=== PATIENT | female | born 1995 | race Caucasian/White ===

== ENCOUNTER → 2019-10-20 13:37 | Outpatient (CLI) | payer BC, SELFPAY ==
[2019-10-03 16:04] VITALS: BMI 28.5
[2019-10-20 15:28] LABS: Absolute Lymphocyte Count 2.05 X10^3/uL (0.83-4.51); Absolute Neutrophil Count 2.5 X10^3/uL (2.0-7.7); Basophil# 0.04 X10^3/uL; Basophil% 0.8 % (0-1); Eosinophil# 0.08 X10^3/uL; Eosinophils% 1.6 % (0-5); Hematocrit 33.7 % (37-47); Hemoglobin 10.9 g/dL (12.0-15.0); Lymphocyte # 2.05 X10^3/ul (4.0); Lymphocyte % 40.5 % (19-41); Mean Corp Hgb Conc 32.3 g/dL (32-36); Mean Corpuscular Hgb 29.1 pg (27.0-32.0); Mean Corpuscular Volume 90.1 fL (81-99); Mean Platelet Vol. 9.8 fl (6.2-12.0); Monocyte# 0.36 X10^3/uL; Monocyte% 7.1 % (0-10); NRBC Flagged by Analyzer 0 % (0-5); Neutrophil # 2.52 X10^3/uL (2.7-7.7); Neutrophil % 49.8 % (47-70); Platelet Count 278 K/mm3 (150-450); RBC Distribution Width CV 12.6 % (11.6-14.6); RBC Distribution Width SD 41.3 fl (35.1-43.9); Red Blood Count 3.74 M/mm3 (4.2-5.4); White Blood Count 5.1 K/mm3 (4.4-11.0)
[2019-10-20 15:48] LABS: Ferritin 62 ng/mL (8-252); T4 Free Direct 1.35 ng/dL (0.76-1.46); Thyroid Stim Hormone (TSH) 1.36 uIU/mL (0.358-3.74)
[2019-10-20 15:55] LABS: Vitamin B12 390 pg/mL (211-911); Vitamin D,25 Hydroxy 84.5 ng/mL
== END ==
PROVIDERS: PCP Family Medicine; Referring Provider Internal Medicine Endocrinology, Diabetes & Metabolism; Visit Provider Internal Medicine Endocrinology, Diabetes & Metabolism
DX: M62.89 Other specified disorders of muscle (principal); E03.8 Other specified hypothyroidism; E06.3 Autoimmune thyroiditis; R20.2 Paresthesia of skin; N92.0 Excessive and frequent menstruation with regular cycle
CPT/HCPCS: 36415; 82306; 82607; 82728; 84439; 84443; 85025

== ENCOUNTER → 2020-04-18 10:08 | Outpatient (CLI) | payer BC, SELFPAY ==
[2019-10-03 16:04] VITALS: BMI 28.5
--- NOTE | 2020-04-18 10:16 | US_ITS ---
STUDY: THYROID ULTRASOUND REASON FOR EXAM: Female, 25 years old. SHUN''S THYROIDITIS PT ON LEVOTHYROXIN TECHNIQUE: Ultrasound evaluation of the thyroid was performed with real-time and static morris-scale imaging. COMPARISON: None. FINDINGS: RIGHT LOBE: The right lobe of the thyroid gland measures 4.4 cm x 1.3 cm x 1.6 cm. There is a heterogeneous echotexture. There are no demonstrated solid, cystic or complex lesions. LEFT LOBE: The left lobe of the thyroid gland measures 4.4 cm x 1.4 cm x 1.4 cm. There is a heterogeneous echotexture. There are no demonstrated solid, cystic or complex lesions. ISTHMUS: The isthmus measures 3 mm. The regional lymph nodes are normal. US/Thyroid IMPRESSION: Heterogeneous appearance of both lobes of the thyroid. No focal lesion is seen. Electronically Signed: Filiberto Del Toro MD at 13:11 EST , Service support ,
== END ==
PROVIDERS: PCP Family Medicine; Referring Provider Otolaryngology; Visit Provider Otolaryngology
DX: E06.3 Autoimmune thyroiditis (principal)
CPT/HCPCS: 36415; 76536; 84443

== ENCOUNTER 2021-04-28 10:08 | Outpatient (CLI) | payer BC, SELFPAY | END 2021-04-28 23:59 | disposition short-term general hospital (02) | PROVIDERS: PCP Family Medicine; Referring Provider Otolaryngology; Visit Provider Otolaryngology | DX: E06.3 Autoimmune thyroiditis (principal) | CPT/HCPCS: 36415; 84443 ==

== ENCOUNTER → 2022-02-27 | Outpatient (CLI) | payer OTHER, BC, SELFPAY ==
[2022-02-27 11:11] LABS: Absolute Lymphocyte Count 2.06 X10^3/uL (0.83-4.51); Absolute Neutrophil Count 4.7 X10^3/uL (2.0-7.7); Basophil# 0.05 X10^3/uL; Basophil% 0.7 % (0-1); Eosinophil# 0.06 X10^3/uL; Eosinophils% 0.8 % (0-5); Hematocrit 37.9 % (37-47); Hemoglobin 12.4 g/dL (12.0-15.0); Lymphocyte # 2.06 X10^3/ul (0.83-4.51); Lymphocyte % 27.9 % (19-41); Mean Corp Hgb Conc 32.7 g/dL (32-36); Mean Corpuscular Hgb 29.7 pg (27.0-32.0); Mean Corpuscular Volume 90.9 fL (81-99); Mean Platelet Vol. 8.9 fl (6.2-12.0); Monocyte# 0.47 X10^3/uL; Monocyte% 6.4 % (0-10); NRBC Flagged by Analyzer 0 % (0-5); Neutrophil # 4.69 X10^3/uL (2.7-7.7); Neutrophil % 63.4 % (47-70); Platelet Count 333 K/mm3 (150-450); RBC Distribution Width CV 12.5 % (11.6-14.6); RBC Distribution Width SD 41.2 fl (35.1-43.9); Red Blood Count 4.17 M/mm3 (4.2-5.4); White Blood Count 7.4 K/mm3 (4.4-11.0)
[2022-02-27 11:34] LABS: Vitamin B12 630 pg/mL (211-911); Vitamin D,25 Hydroxy 93.5 ng/mL
[2022-02-27 11:42] LABS: Ferritin 137 ng/mL (8-252); T4 Free Direct 1.14 ng/dL (0.76-1.46); Thyroid Stim Hormone (TSH) 2.86 uIU/mL (0.358-3.74)
== END | disposition home or self-care (01) ==
LOC: LAB 10:27
PROVIDERS: PCP Family Medicine; Referring Provider Internal Medicine Endocrinology, Diabetes & Metabolism; Visit Provider Internal Medicine Endocrinology, Diabetes & Metabolism
DX: O99.281 Endocrine, nutritional and metabolic diseases complicating pregnancy, first trimester (principal); E55.9 Vitamin D deficiency, unspecified; E61.1 Iron deficiency; E03.9 Hypothyroidism, unspecified; Z3A.00 Weeks of gestation of pregnancy not specified
CPT/HCPCS: 36415; 82306; 82607; 82728; 84439; 84443; 85025

== ENCOUNTER → 2022-03-26 | Outpatient (CLI) | payer OTHER, BC, SELFPAY ==
[2022-03-26 11:14] LABS: Absolute Lymphocyte Count 1.82 X10^3/uL (0.83-4.51); Absolute Neutrophil Count 6.1 X10^3/uL (2.0-7.7); Basophil# 0.04 X10^3/uL; Basophil% 0.5 % (0-1); Eosinophil# 0.08 X10^3/uL; Eosinophils% 0.9 % (0-5); Hematocrit 35.8 % (37-47); Lymphocyte # 1.82 X10^3/ul (0.83-4.51); Lymphocyte % 21.1 % (19-41); Mean Corp Hgb Conc 33.5 g/dL (32-36); Mean Corpuscular Hgb 30.4 pg (27.0-32.0); Mean Corpuscular Volume 90.6 fL (81-99); Mean Platelet Vol. 8.9 fl (6.2-12.0); Monocyte# 0.44 X10^3/uL; Monocyte% 5.1 % (0-10); NRBC Flagged by Analyzer 0 % (0-5); Neutrophil # 6.13 X10^3/uL (2.7-7.7); Neutrophil % 70.9 % (47-70); Platelet Count 317 K/mm3 (150-450); RBC Distribution Width SD 40.1 fl (35.1-43.9); Red Blood Count 3.95 M/mm3 (4.2-5.4); White Blood Count 8.6 K/mm3 (4.4-11.0)
[2022-03-26 12:12] LABS: HIV - WCH Non-Reactive (Nonreactive); Hepatitis B Surface Antigen Non-Reactive (Nonreactive); Hepatitis C Antibody Non-Reactive (Nonreactive); Rubella IgG Reactive (Nonreactive); Syphilis Antibodies Non-reactive
[2022-03-27 17:04] LABS: V-Zoster IgG (Immunity) 1974 index (Immune >165)
[2022-04-03 21:29] LABS: HPV Reflexed? NOT INDICATED
== END | disposition home or self-care (01) ==
LOC: WOBLAB 10:05
PROVIDERS: PCP Family Medicine; Visit Provider Student in an Organized Health Care Education/Training Program
DX: Z34.81 Encounter for supervision of other normal pregnancy, first trimester (principal)
CPT/HCPCS: 36415; 85025; 86703; 86762; 86780; 86787; 86803; 87086; 87088; 87340; 88175; G0145

== ENCOUNTER → 2022-04-27 | Outpatient (CLI) | payer OTHER, SELFPAY ==
[2022-04-27 13:21] LABS: Hemoglobin 11.1 g/dL (12.0-15.0); Mean Corp Hgb Conc 33.6 g/dL (32-36); Mean Corpuscular Hgb 30.1 pg (27.0-32.0); Mean Corpuscular Volume 89.4 fL (81-99); Mean Platelet Vol. 8.9 fl (6.2-12.0); Platelet Count 256 K/mm3 (150-450); RBC Distribution Width SD 42.4 fl (35.1-43.9); Red Blood Count 3.69 M/mm3 (4.2-5.4); White Blood Count 7.6 K/mm3 (4.4-11.0)
[2022-04-27 13:33] LABS: Vitamin B12 533 pg/mL (211-911)
[2022-04-27 13:38] LABS: Ferritin 182 ng/mL (8-252); Free T3 2.2 pg/mL (2.18-3.98); T4 Free Direct 1.18 ng/dL (0.76-1.46); Thyroid Stim Hormone (TSH) 7.73 uIU/mL (0.358-3.74)
== END | disposition home or self-care (01) ==
LOC: WOBLAB 11:38
PROVIDERS: PCP Family Medicine; Visit Provider Student in an Organized Health Care Education/Training Program
DX: Z34.82 Encounter for supervision of other normal pregnancy, second trimester (principal)
CPT/HCPCS: 36415; 82306; 82607; 82728; 84439; 84443; 84481; 85027

== ENCOUNTER 2022-06-09 06:03 | Emergency (ER) | payer OTHER, SELFPAY ==
[2022-06-09 06:04] VITALS: BP 122/75; PULSE 111; RESP 18; TEMP 35.8; O2SAT 100; BMI 11.7
--- NOTE | 2022-06-09 06:51 | EDS_ITS ---
HPI History of Present Illness Chief Complaint: General Illness Narrative Narrative: Patient is is a 27-year-old female with past medical history of iron deficiency anemia and hypothyroidism. She is approximately 19 weeks . She states that for the past 10 to 14 days she has had nasal congestion sore throat and cough. She states she is talked to her AMMUNITION AND EXPLOSIVES HANDLER about this and was told that she has the crud. She reports that she just cannot take it any longer and has had increased pain in her right ear and with the prolonged symptoms and now worsening ear pain comes in for evaluation. Patient states that there is been no vaginal bleeding or discharge and she denies any dysuria. [facility] Medical History Dysmenorrhea Hyperthyroidism Hypothyroidism affecting in first trimester Iron deficiency Menorrhagia Home Medications ascorbic acid (vitamin C) 1,000 mg tablet 1 g PO Q6H 10/03/19 [History Last Taken Unknown] prenat.vits,haresh,bjd-bctd-crasa 1 tab PO DAILY 02/27/22 [History Last Taken Unknown] levothyroxine 175 mcg tablet 175 mcg PO .COMPLEX #90 tabs 05/07/22 [Rx Last Take n Unknown] azelastine 137 mcg (0.1 %) nasal spray aerosol 2 spray intranasal BID #30 mL 06/09/22 [Rx Last Taken Unknown] cefdinir 300 mg capsule 300 mg PO BID 7 days #14 caps 06/09/22 [Rx Last Taken U nknown] prednisone 20 mg tablet 40 mg PO DAILY 4 days #8 tabs 06/09/22 [Rx Last Taken Unknown] Allergy/AdvReac Type Severity Reaction Status Date / Time No Known Allergies Allergy Verified 06/09/22 06:09 Family History Mother No pertinent past medical history Father No pertinent past medical history Surgical History History of tonsillectomy (~2015) Hx of cholecystectomy (~2012) Social History Smoking Status: Former smoker ROS ROS ED Constitutional Constitutional ED: Denies chills or fever(s) ENT ENT ED: Reports ear pain, rhinorrhea and sore throat Cardiovascular Cardiovascular: Denies chest pain Respiratory/Chest Respiratory/Chest: Reports cough; Denies dyspnea Gastrointestinal Gastrointestinal: Denies abdominal pain, diarrhea, nausea or vomiting Genitourinary Genitourinary ED: Denies dysuria or hematuria Musculoskeletal Musculoskeletal: Reports myalgias Integumentary Denies rash Neurologic Neurologic: Reports headache(s) Hematologic/Lymphatic Hematologic/Lymphatic: Denies easy bleeding or easy bruising EXAM Physical Exam Const Vital Signs: 06/09/22 06:04 06/09/22 07:03 Temperature 96.5 F L Temperature Source Temporal Pulse Rate 111 H Respiratory Rate 18 16 Blood Pressure 122/75 H 106/66 Blood Pressure Mean 90 Pulse Ox 100 Oxygen Delivery Method Room Air Positive well nourished and well developed General Appearance ED: well developed HEENT Reports moist mucous membranes HEENT Narrative: Nasal mucosa is hyperemic and boggy with enlarged inferior nasal turbinate Patient has cobblestoning the posterior pharynx consistent with sinus drainage without airway edema or compromise Left canal and TM are normal Right canal is normal but TM is erythematous and bulging consistent with acute otitis media. No air-fluid level or rupture of the tympanic membrane noted Eyes PERRL and EOMs intact bilaterally Neck supple Neck Narrative: Positive anterior cervical of adenopathy present No nuchal rigidity or meningeal signs Resp normal respiratory effort and clear to auscultation bilaterally Cardio regular rate and regular rhythm GI GI Narrative: Abdomen is gravid with fundus consistent with reported gestational age Extremity normal to inspection Extremity Narrative: No asymmetric edema negative Homans' sign bilaterally Neuro oriented x3 and CN's II-XII intact bilaterally Sensorium / Orientation: alert Psych mental status grossly normal Skin no rashes or lesions noted MDM MDM MDM Narrative Medical decision making narrative: Patient presented to the ER with stable vitals and in no acute respiratory distress. Her lungs are clear she is satting 100% on room air and concern for underlying pneumonia is low. Her constellation of symptoms is consistent with influenza versus COVID versus upper respiratory infection. We discussed possible viral swabs but at this time she is not hypoxic she is not in respiratory distress or requiring supplemental oxygen so even if she was positive they would not change treatment strategy and therefore elected not to perform the viral swabs. Also as her lungs are clear and as she is concern for pneumonia is low and we will forego a chest x-ray at this time. Patient's symptoms are consistent with upper respiratory tract infection leading to a secondary otitis media. Patient was informed the URI is viral and cannot be cured with antibiotics and will take typically 3 weeks to resolve. However as she has a now secondary otitis media she will be placed on antibiotics. As patient states she was on antibiotics in the last 4 to 6 weeks I will increase the strength of the antibiotic from amoxicillin to Omnicef. Otherwise at this time as patient has no signs of systemic infection respiratory distress or secondary complication she is otherwise safe for discharge History & Record Review Discussion w/independent historian: Patient and Family Discharge Plan Triage Chief Complaint: General Illness ED Provider: Magdiel Sky Dx/Rx/DC Orders Clinical Impression: Acute right otitis media, Upper respiratory tract infection Instructions: ED Otitis Media Antibiotic ..., ED Viral Syndrome (Adult) Prescriptions: New prednisone 20 mg tablet 40 mg PO DAILY 4 Days Qty: 8 0RF azelastine 137 mcg (0.1 %) aerosol,spray 2 spray intranasal BID Qty: 30 0RF Rx Instructions: administer into each nostril cefdinir 300 mg capsule 300 mg PO BID 7 Days Qty: 14 0RF No Action ascorbic acid (vitamin C) 1,000 mg tablet 1 g PO Q6H prenat.vits,haresh,oqy-xtiz-oxqbv Tablet 1 tab PO DAILY levothyroxine 175 mcg tablet 175 mcg PO .COMPLEX Qty: 90 3RF Rx Instructions: 175 mcg orally one daily Sun-Wednesday, 1/2 on Wednesday; Stand Alone Forms: ED Work / School Excuse Primary Care Provider: Teri Vernon Referrals: Teri Vernon PA-C [Primary Care Provider] - Activity Restrictions/Additional Instructions: Your exam indicates you have an upper respiratory infection which will last on average 3 weeks. However you also have a secondary right ear infection. Take the medications as directed to help reduce your symptoms and resolve the ear infection and return to the ER should you have any further concerns Disposition Disposition: Home, Self Care Discharge Date/Time: 06/09/22 07:04
[2022-06-09] MEDS: predniSONE 20 MG Tablet 40 MG PO (06:56)
[2022-06-09] MEDS: Cefdinir 300 MG Capsule PO (07:02)
[2022-06-09 07:03] VITALS: BP 106/66; RESP 16
== END 2022-06-09 07:04 | disposition home or self-care (01) ==
PROVIDERS: Emergency Provider Emergency Medicine; PCP Family Medicine; Visit Provider Emergency Medicine
DX: O99.512 Diseases of the respiratory system complicating pregnancy, second trimester (principal); J06.9 Acute upper respiratory infection, unspecified; Z87.891 Personal history of nicotine dependence; H66.91 Otitis media, unspecified, right ear; Z3A.19 19 weeks gestation of pregnancy; O99.282 Endocrine, nutritional and metabolic diseases complicating pregnancy, second trimester; E03.9 Hypothyroidism, unspecified
CPT/HCPCS: 99283

== ENCOUNTER → 2022-06-26 | Outpatient (CLI) | payer OTHER, SELFPAY ==
[2022-06-26 12:58] LABS: Ferritin 183 ng/mL (8-252); Free T3 2.4 pg/mL (2.18-3.98); T4 Free Direct 1.24 ng/dL (0.76-1.46); Thyroid Stim Hormone (TSH) 0.85 uIU/mL (0.358-3.74)
== END | disposition home or self-care (01) ==
LOC: WOBLAB 11:28
PROVIDERS: PCP Family Medicine; Visit Provider Student in an Organized Health Care Education/Training Program
DX: E03.9 Hypothyroidism, unspecified (principal)
CPT/HCPCS: 36415; 82728; 84439; 84443; 84481

== ENCOUNTER → 2022-07-31 | Outpatient (CLI) | payer OTHER, MEDICAID, SELFPAY ==
[2022-07-31 12:19] LABS: Hemoglobin 9.4 g/dL (12.0-15.0); Mean Corp Hgb Conc 32.4 g/dL (32-36); Mean Corpuscular Hgb 29.7 pg (27.0-32.0); Mean Corpuscular Volume 91.5 fL (81-99); Mean Platelet Vol. 8.7 fl (6.2-12.0); POSITIVE COUNT YES; POSITIVE MORPHOLOGY YES; Platelet Count 237 K/mm3 (150-450); RBC Distribution Width CV 13.5 % (11.6-14.6); RBC Distribution Width SD 45.3 fl (35.1-43.9); Red Blood Count 3.17 M/mm3 (4.2-5.4); White Blood Count 10.9 K/mm3 (4.4-11.0)
[2022-07-31 12:20] LABS: Differential Indicated MANUAL DIFF
[2022-07-31 12:34] LABS: Glucose Challenge Gest 1H 50g 132 mg/dL (70-140); T4 Free Direct 1.26 ng/dL (0.76-1.46); Thyroid Stim Hormone (TSH) 1.72 uIU/mL (0.358-3.74)
[2022-07-31 12:46] LABS: Syphilis Antibodies Non-reactive
[2022-07-31 14:26] LABS: Lymphocyte 18 % (19-41); Monocyte 7 % (0-10); Myelocyte 1 % (0-0); Neutrophil-Band 1 % (0-5); Neutrophil-Segmented 73 % (47-70); Platelet Estimate ADEQUATE (ADEQ); Red Cell Morphology NORM C+C NORMAL (NORM C&C); Total Cells Counted 100 (MANUAL DIFF)
[2022-07-31 14:28] LABS: Absolute Lymphocyte Count 1.82 X10^3/uL (0.83-4.51); Absolute Neutrophil Count 7.5 X10^3/uL (2.0-7.7)
[2022-08-04 09:46] LABS: Pathologist Review Reviewed
== END | disposition home or self-care (01) ==
LOC: WOBLAB 11:07
PROVIDERS: PCP Family Medicine; Visit Provider Student in an Organized Health Care Education/Training Program
DX: Z34.83 Encounter for supervision of other normal pregnancy, third trimester (principal)
CPT/HCPCS: 36415; 82950; 84439; 84443; 85025; 86780

== ENCOUNTER → 2022-08-28 | Outpatient (CLI) | payer MEDICAID, SELFPAY ==
[2022-08-28 16:51] LABS: Ferritin 100 ng/mL (8-252); T4 Free Direct 1.27 ng/dL (0.76-1.46); Thyroid Stim Hormone (TSH) 1.52 uIU/mL (0.358-3.74)
== END | disposition home or self-care (01) ==
LOC: WOBLAB 15:03
PROVIDERS: PCP Family Medicine; Visit Provider Student in an Organized Health Care Education/Training Program
DX: E03.9 Hypothyroidism, unspecified (principal)
CPT/HCPCS: 36415; 82728; 84439; 84443

== ENCOUNTER → 2022-09-02 | Outpatient (CLI) | payer MEDICAID, SELFPAY ==
--- NOTE | 2022-09-02 12:09 | EKG12_ITS ---
Test Reason : PALPS Blood Pressure : / mmHG Vent. Rate : 091 BPM Atrial Rate : 091 BPM P-R Int : 128 ms QRS Dur : 076 ms QT Int : 350 ms P-R-T Axes : 058 036 028 degrees QTc Int : 430 ms Normal sinus rhythm Normal ECG Confirmed by EDUARDO TOLBERT, BRINA ([id number]), medical transcription editor SVEN SHAW ([id number]) on 09/03/2022 9:31:14 AM Referred By: Lidya Pratt Confirmed By:BRINA CLARK MD
== END | disposition home or self-care (01) ==
LOC: PSN 12:08
PROVIDERS: PCP Family Medicine; Referring Provider Student in an Organized Health Care Education/Training Program; Visit Provider Student in an Organized Health Care Education/Training Program
DX: Z34.93 Encounter for supervision of normal pregnancy, unspecified, third trimester (principal); Z3A.31 31 weeks gestation of pregnancy
CPT/HCPCS: 93005

== ENCOUNTER → 2022-09-11 | Outpatient (CLI) | payer MEDICAID, SELFPAY ==
[2022-09-11 11:11] LABS: Absolute Lymphocyte Count 1.65 X10^3/uL (0.83-4.51); Absolute Neutrophil Count 6.4 X10^3/uL (2.0-7.7); Basophil# 0.03 X10^3/uL; Basophil% 0.3 % (0-1); Eosinophil# 0.11 X10^3/uL; Eosinophils% 1.2 % (0-5); Hematocrit 30.8 % (37-47); Hemoglobin 10.1 g/dL (12.0-15.0); Lymphocyte # 1.65 X10^3/ul (0.83-4.51); Lymphocyte % 18.3 % (19-41); Mean Corp Hgb Conc 32.8 g/dL (32-36); Mean Corpuscular Hgb 29.9 pg (27.0-32.0); Mean Corpuscular Volume 91.1 fL (81-99); Mean Platelet Vol. 9.1 fl (6.2-12.0); Monocyte% 5.5 % (0-10); NRBC Flagged by Analyzer 0 % (0-5); Neutrophil # 6.39 X10^3/uL (2.7-7.7); Platelet Count 177 K/mm3 (150-450); RBC Distribution Width CV 14.1 % (11.6-14.6); RBC Distribution Width SD 46.9 fl (35.1-43.9); Red Blood Count 3.38 M/mm3 (4.2-5.4)
[2022-09-11 11:29] LABS: ALB/GLOB Ratio 0.7 RATIO (0.9-2.4); AST(SGOT) 14 U/L (15-37); Alanine Aminotransfer ALT/SGPT 13 U/L (13-56); Albumin, Serum 2.8 g/dL (3.2-5.0); Alkaline Phosphatase 93 U/L (45-117); Anion Gap 9 (5-15); BUN 7 mg/dL (7-18); BUN/Creat Ratio 13.4 RATIO (10-20); Calcium,Total 8.6 mg/dL (8.5-10.1); Chloride 106 mmol/L (98-107); Creatinine, Serum 0.52 mg/dL (0.55-1.02); EST Glomerular Filtration Rate 150 mL/min (>60); Est Glom Filt Rate - Afr Amer 182 mL/min (>60); Ferritin 93 ng/mL (8-252); Globulin 3.9 g/dL (2.2-4.2); Glucose 107 mg/dL (74-106); Potassium 3.9 mmol/L (3.5-5.1); Protein, Total 6.7 g/dL (6.4-8.2); Sodium Level 138 mmol/L (136-145)
== END | disposition home or self-care (01) ==
LOC: WOBLAB 10:35
PROVIDERS: PCP Family Medicine; Visit Provider Nurse Practitioner Women's Health
DX: Z34.93 Encounter for supervision of normal pregnancy, unspecified, third trimester (principal); Z3A.33 33 weeks gestation of pregnancy
CPT/HCPCS: 36415; 80053; 82728; 85025

== ENCOUNTER → 2022-10-07 | Outpatient (CLI) | payer MEDICAID, SELFPAY | END | disposition home or self-care (01) | LOC: WOBLAB 14:31 | PROVIDERS: PCP Family Medicine; Visit Provider Student in an Organized Health Care Education/Training Program | DX: Z36.85 Encounter for antenatal screening for Streptococcus B (principal) | CPT/HCPCS: 87081 ==

== ENCOUNTER → 2022-10-14 | Outpatient (CLI) | payer MEDICAID, SELFPAY ==
[2022-10-14 16:59] LABS: T4 Free Direct 1.31 ng/dL (0.76-1.46); Thyroid Stim Hormone (TSH) 0.65 uIU/mL (0.358-3.74)
[2022-10-16 14:09] LABS: Thyroglobulin Antibody 3.5 IU/mL (0.0-0.9); Thyroid Peroxidase AB 97 IU/mL (0-34)
== END | disposition home or self-care (01) ==
LOC: WOBLAB 16:06
PROVIDERS: PCP Family Medicine; Visit Provider Student in an Organized Health Care Education/Training Program
DX: E03.9 Hypothyroidism, unspecified (principal)
CPT/HCPCS: 36415; 84439; 84443; 86376; 86800

== ENCOUNTER 2022-10-23 05:05 | Inpatient (IN) | payer MEDICAID, SELFPAY ==
[2022-10-23] VITALS (22 sets, daily range): BP systolic 97–137; BP diastolic 42–74; PULSE 58–88; RESP 12–24; TEMP 36.1–37.1; O2SAT 96–100; BMI 29.2
[2022-10-23] MEDS: Lactated Ringers 1,000 ML 999 ML IV (05:30)
[2022-10-23 05:44] LABS: Absolute Lymphocyte Count 2.31 X10^3/uL (0.83-4.51); Absolute Neutrophil Count 5.8 X10^3/uL (2.0-7.7); Basophil# 0.05 X10^3/uL; Basophil% 0.6 % (0-1); Eosinophil# 0.11 X10^3/uL; Eosinophils% 1.2 % (0-5); Hematocrit 29.6 % (37-47); Hemoglobin 9.5 g/dL (12.0-15.0); Lymphocyte # 2.31 X10^3/ul (0.83-4.51); Lymphocyte % 25.6 % (19-41); Mean Corp Hgb Conc 32.1 g/dL (32-36); Mean Corpuscular Hgb 28.7 pg (27.0-32.0); Mean Corpuscular Volume 89.4 fL (81-99); Mean Platelet Vol. 9.7 fl (6.2-12.0); Monocyte# 0.55 X10^3/uL; Monocyte% 6.1 % (0-10); NRBC Flagged by Analyzer 0 % (0-5); Neutrophil # 5.84 X10^3/uL (2.7-7.7); Neutrophil % 64.5 % (47-70); Platelet Count 184 K/mm3 (150-450); RBC Distribution Width CV 14.1 % (11.6-14.6); RBC Distribution Width SD 45.4 fl (35.1-43.9); Red Blood Count 3.31 M/mm3 (4.2-5.4)
[2022-10-23] MEDS: Lactated Ringers 1,000 ML 150 ML IV (06:32)
[2022-10-23] MEDS: Sodium Citrate/Citric Acid 30 ML UDC PO (07:17)
[2022-10-23] MEDS: Acetaminophen 500 MG Tablet 1000 MG PO ×3 (07:17→19:39)
--- NOTE | 2022-10-23 07:37 | PCM.HP.BLA ---
History and Physical Date of Admission: 10/23/22 HPI: 27 yo at 39/0w, RAFFY 10/30/22 by LMP, admitted for primary section for breech position. Denies regular contractions, leaking of fluid, vaginal bleeding. Reports movement. Denies headache or vision changes, chest pain or shortness of breath, nausea or vomiting, diarrhea constipation, fevers or chills. complicated by: Asmita's well controlled on medication, iron deficiency anemia, dizziness during (had cardiology follow-up with normal EKG). INCLUSION SPECIAL EDUCATOR history: G1: 39-week G2: Current Medical history: 1. Asmita's hypothyroidism 2. Iron deficiency anemia Surgical history: 1. Cholecystectomy 2013 2. Tympanostomy tubes 3. Tonsillectomy 2016 Medications: 1. Vitamin C 2. Vitamin D3 3. Iron 4. Levothyroxine 5. Magnesium 6. vitamin Allergies: No known drug allergies Family history: Denies history of blood clots or bleeding disorders Social history: Denies tobacco, alcohol, drug use Physical exam: Vitals blood pressure 102/53, heart rate 88, respiratory rate 16, temp 97.7 ?F, oxygen saturation 97% on room air General: No acute distress HEENT: Normocephalic/atraumatic, PERRLA cardiorespiratory: No increased effort Abdomen: Soft, nontender, gravid Extremities: No edema Bedside ultrasound: Confirms cephalic position this morning Assessment/plan: 27 yo at 39/0w, RAFFY 10/30/22 by LMP, admitted for primary section for breech position. complicated by: Asmita's well controlled on medication, iron deficiency anemia, dizziness during (had cardiology follow-up with normal EKG). ?Primary section. 2 g Ancef preoperatively ? All risk, benefits, alternatives discussed with patient. Risk include but are not limited to: Risk of bleeding to the point of transfusion, infection, injury to surrounding tissue including bowel/bladder potentially requiring prolonged Gutierrez catheter use, VTE, ICU admission. Patient aware and consented. ?Hypothyroidism. Continue levothyroxine. Will need repeat labs approximately 6 weeks ? Iron deficiency anemia. Repeat CBC tomorrow. ? Dizziness in . Negative cardiac work-up. Likely related to .
[2022-10-23] MEDS: Cefazolin 2 GM in 0.9% Normal Saline 100 ML IV (07:42)
[2022-10-23 07:47] LABS: Syphilis Antibodies Non-reactive
--- NOTE | 2022-10-23 08:26 | EX.PCM.OBRPT ---
Maternal Data Information Final RAFFY: 10/30/22 Final RAFFY Source: LMP Details Operative Information Date of Procedure: 10/23/22 Pre-Operative Diagnosis: Evans intrauterine , breech position Post-Operative Diagnosis: Evans intrauterine , breech position Indications Narrative: This is a 27-year-old G2, P1 at 39/0 weeks, RAFFY by LMP, admitted for primary section for breech position. All risk, benefits, alternatives were discussed with the patient. Risks include but are not limited to: Risk of bleeding to the point of transfusion, infection, injury to surrounding tissue including bowel/bladder potentially requiring prolonged Gutierrez catheter use, VTE, ICU admission. Patient aware and consented. Classification: Scheduled Procedure Type: low transverse architectural inspector #1: Hector Beckett Type of Anesthesia: Spinal Antibiotic Given: Ancef 2 grams IV x1 Estimated Blood Loss: 700cc Fluids Replaced: 1000cc Findings Description of Procedure: Procedure: Patient taken to the operating room and spinal anesthesia placed. Patient placed in the supine position with a left lateral tilt. Prepped and draped in the usual sterile fashion. Pfannenstiel skin incision made with scalpel and carried down through subcutaneous tissue. Fascia nicked on either side of the midline and extended bluntly. Tiago clamps grasped superior fascial edge which was tented up and underlying rectus muscle dissected off bluntly. Tiago clamps moved to inferior fascial edge which was tented up and underlying rectus muscles were dissected off bluntly and sharply at midline using Stanton scissors. Hemostat used to separate rectus muscle superiorly. Peritoneum entered bluntly. Bladder blade placed. Low transverse uterine incision made with scalpel and extended bluntly. Hand placed into the uterine cavity and buttocks elevated to the level of the hysterotomy. Buttocks delivered. Each leg was swept across body and delivered. Blue towel used to gently grasp the torso. Arms swept across the chest and delivered. Head flexed and delivered. Nuchal cord x1, loose, delivered through. Cord clamped and cut. Baby to nursing. Spontaneous delivery of placenta. Uterus exteriorized and cleared of all clots. Hysterotomy closed with a running stitch and a second vertical imbricating stitch. Hemostatic. Uterus replaced into the abdominal cavity, hemostasis confirmed. Peritoneum closed with a running stitch. Rectus muscles reapproximated with 2 horizontal mattress sutures. Fascia closed with a running stitch. Subcutaneous tissue irrigated. Subcutaneous tissue reapproximated with suture. Skin closed with a running subcuticular stitch. At the end of the procedure all needle, lap, sponge counts were correct. UOP: 100cc clear urine Amniotic Fluid Description: Clear Infant A Gender: Female (1 minute): 9 (5 minute): 9 Delayed Cord Clamping: Yes Complications Complications: None
[2022-10-23] MEDS: Oxytocin 15 Units/NS 250ml 15 UNITS/250 ML IV.SOLN 83 UNITS IV (09:15)
[2022-10-23] MEDS: Ketorolac 30 MG/ML Syringe IV ×3 (10:01→22:03)
[2022-10-23] MEDS: Lactated Ringers 1,000 ML 100 ML IV (12:24)
[2022-10-23] MEDS: Senna/Docusate Sodium 1 Tablet PO (12:25)
[2022-10-23] MEDS: Enoxaparin 40 MG/0.4 ML Syringe SC (22:02)
[2022-10-23] MEDS: 0.9% Saline Lock 10 ML Syringe IV (22:03)
[2022-10-24 00:20] VITALS: BP 105/58; PULSE 67; RESP 16; TEMP 36.9; O2SAT 98
[2022-10-24] MEDS: Acetaminophen 500 MG Tablet 1000 MG PO ×2 (01:53→07:31)
[2022-10-24] MEDS: Ketorolac 30 MG/ML Syringe IV (03:45)
[2022-10-24] MEDS: 0.9% Saline Lock 10 ML Syringe IV (03:45)
[2022-10-24 05:03] VITALS: BP 106/62; PULSE 70; RESP 16; TEMP 36.8; O2SAT 98
[2022-10-24 05:25] LABS: Hematocrit 26.7 % (37-47); Hemoglobin 8.7 g/dL (12.0-15.0); Mean Corp Hgb Conc 32.6 g/dL (32-36); Mean Corpuscular Hgb 29.7 pg (27.0-32.0); Mean Corpuscular Volume 91.1 fL (81-99); Mean Platelet Vol. 9.5 fl (6.2-12.0); Platelet Count 177 K/mm3 (150-450); RBC Distribution Width CV 13.9 % (11.6-14.6); Red Blood Count 2.93 M/mm3 (4.2-5.4); White Blood Count 15.9 K/mm3 (4.4-11.0)
[2022-10-24] MEDS: Levothyroxine 175 MCG Tablet PO (06:22)
[2022-10-24 07:33] VITALS: BP 97/56; PULSE 73; RESP 16; TEMP 36.9; O2SAT 99
--- NOTE | 2022-10-24 09:48 | DCINST_ITS ---
Discharge Instructions Diet Discharge Diet: No restrictions Activity Discharge Activity: Return to Normal Activity, May Drive, May Shower and - (No tub baths for 2 weeks) May resume sexual activity in: 6-8 weeks Lifting Restrictions: No lifting over 25 pounds for 2 to 3 weeks Dressing / Incision Call your doctor if your incision/area has: Continuous Slow Oozing and Foul Smelling Discharge Call your doctor if you observe: Fever of 101 or Higher, Shortness of breath and Chest pain Follow Up Care Please Follow Up With: Danial Pratt MD When: 2 weeks postoperatively Test Results: Test results from this visit will be discussed in further detail at your follow- up appointment, if applicable. Discharge Plan Admission Admit Date/Time: 10/23/22 05:05 Primary Reason for Your Visit: section Attending Provider: Lidya Pratt Primary Care Provider: Teri Vernon Discharge Orders/Prescriptions Prescriptions: New oxycodone 5 mg tablet 5 mg PO Q6H PRN (Reason: pain (scale score 7-10)) 4 Days Qty: 14 0RF Continued ascorbic acid (vitamin C) 1,000 mg tablet 1 g PO Q6H prenat.vits,haresh,bvr-fofi-frhye Tablet 1 tab PO DAILY cholecalciferol (vitamin D3) 50 mcg (2,000 unit) capsule 50 mcg PO DAILY ferrous sulfate [FeroSul] 325 mg (65 mg iron) tablet 325 mg PO DAILY magnesium oxide,aspartate,citr 400 mg magnesium capsule PO prednisone 20 mg tablet 40 mg PO DAILY 4 Days Qty: 8 0RF azelastine 137 mcg (0.1 %) aerosol,spray 2 spray intranasal BID Qty: 30 0RF Rx Instructions: administer into each nostril levothyroxine 175 mcg tablet 175 mcg PO .COMPLEX Qty: 90 3RF Rx Instructions: 175 mcg orally one daily Wed-Wednesday, 1/2 on Wednesday; Discontinued cefdinir 300 mg capsule 300 mg PO BID 7 Days Qty: 14 0RF Referrals / Follow Up: Teri Vernon PA-C [Primary Care Provider] - Disposition Discharge Orders: Discharge Patient (Routine); Ordered 10/24/22 Ordered By: Dr. Danial Pratt
--- NOTE | 2022-10-24 09:50 | PCM.PN.OB ---
Subjective Subjective No overnight complaints Objective Data Objective Data Vital Signs: Vital Signs Temp Pulse Resp BP Pulse Ox O2 Del Method 98.5 F 73 16 97/56 L 99 Room Air 10/24/22 07:33 10/24/22 07:33 10/24/22 07:33 10/24/22 07:33 10/24/22 07:33 10/24/22 07:33 Oxygen Delivery Method Room Air Weight: 144 lb 13.499 oz Body Mass Index (BMI) 29.2 Intake & Output: Intake and Output for Last 24 Hours 10/22/22 10/23/22 10/24/22 23:59 23:59 23:59 Intake Total 3660 / 3660 Output Total 2325 / 2325 600 / 600 Balance 1335 / 1335 -600 / -600 Lab / Micro Data 10/24/22 05:15 Labs: Laboratory Results - last 24 hr 10/24/22 05:15: WBC 15.9 H, RBC 2.93 L, Hgb 8.7 L, Hct 26.7 L, MCV 91.1, MCH 29.7, MCHC 32.6, RDW Std Deviation 46.0 H, RDW Coeff of Raudel 13.9, Plt Count 177, MPV 9.5 Physical Exam Const alert, oriented x3, no apparent distress, average body habitus, healthy appearing and well nourished HEENT normocephalic and moist oral mucous membranes Eyes PERRL Neck full ROM Resp normal respiratory effort, no retractions and no use of accessory muscles GI GI Narrative: Soft, nontender, bandage clean dry and intact Extremity normal to inspection and full ROM Neuro moves all extremities and no focal motor deficits Psych mental status grossly normal, affect normal, speech normal and activity/motor behavior normal Assessment & Plan (1) delivery delivered: PLAN: Postoperative day 1 status post primary section for breech. Breast-feeding. Pain well controlled. Okay to discharge home today if okay with town marshal
[2022-10-24] MEDS: Senna/Docusate Sodium 1 Tablet PO (10:08)
[2022-10-24] MEDS: Ibuprofen 600 MG Tablet PO (10:08)
== END 2022-10-24 12:35 | disposition home or self-care (01) | DRG 540 ==
PROVIDERS: Admitting Provider Student in an Organized Health Care Education/Training Program; PCP Family Medicine; Referring Provider Student in an Organized Health Care Education/Training Program; Visit Provider Student in an Organized Health Care Education/Training Program
PROC: 10D00Z1 Extraction of Products of Conception, Low, Open Approach (ICD-10-PCS; CPT 59514; principal; 2022-10-23 07:15)
DX: O32.1XX0 Maternal care for breech presentation, not applicable or unspecified (principal); D50.9 Iron deficiency anemia, unspecified; E06.3 Autoimmune thyroiditis; Z3A.39 39 weeks gestation of pregnancy; O99.02 Anemia complicating childbirth; Z37.0 Single live birth; O69.81X0 Labor and delivery complicated by cord around neck, without compression, not applicable or unspecified; O99.284 Endocrine, nutritional and metabolic diseases complicating childbirth
CPT/HCPCS: 59050; 85025; 85027; 86780; 86850; 86900; 86901; 99221; J7120; A4216; G0378; J2405

== ENCOUNTER → 2022-12-04 | Outpatient (CLI) | payer MEDICAID, SELFPAY ==
[2022-12-04 11:56] LABS: T4 Free Direct 1.92 ng/dL (0.76-1.46); Thyroid Stim Hormone (TSH) 0.01 uIU/mL (0.358-3.74)
== END | disposition home or self-care (01) ==
PROVIDERS: PCP Family Medicine; Visit Provider Student in an Organized Health Care Education/Training Program
DX: E03.9 Hypothyroidism, unspecified (principal)
CPT/HCPCS: 36415; 84439; 84443

== ENCOUNTER → 2023-04-16 | Outpatient (CLI) | payer MEDICAID, SELFPAY ==
[2023-04-16 15:13] LABS: Thyroid Stim Hormone (TSH) 1.85 uIU/mL (0.358-3.74)
== END | disposition home or self-care (01) ==
LOC: LAB 13:52
PROVIDERS: PCP Family Medicine; Referring Provider Internal Medicine Endocrinology, Diabetes & Metabolism; Visit Provider Internal Medicine Endocrinology, Diabetes & Metabolism
DX: E03.8 Other specified hypothyroidism (principal); E06.3 Autoimmune thyroiditis
CPT/HCPCS: 36415; 84439; 84443

== ENCOUNTER → 2024-04-25 | Outpatient (CLI) | payer MEDICAID, SELFPAY ==
[2024-04-25 14:17] LABS: T4 Free Direct 1.28 ng/dL (0.76-1.46)
== END | disposition home or self-care (01) ==
LOC: LAB 12:57
PROVIDERS: PCP Family Medicine; Referring Provider Internal Medicine Endocrinology, Diabetes & Metabolism; Visit Provider Internal Medicine Endocrinology, Diabetes & Metabolism
DX: E03.8 Other specified hypothyroidism (principal); E06.3 Autoimmune thyroiditis
CPT/HCPCS: 36415; 84439; 84443

== ENCOUNTER → 2024-12-14 | Outpatient (CLI) | payer MEDICAID, SELFPAY ==
--- OUTSIDE RECORDS SUMMARY | 2024-12-14 10:49 | XMS RPT_ITS | CCD ---
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 Jesus rEickson Attending Provider [phone] [place] PA, PA-C Vic Primary Care Provider [place] KERLINE PA-C Vic Referring Provider Dr. Jesus Erickson Attending Provider [place], VIC Attending Unavailable [place], VIC Consulting Unavailable [place], VIC Primary Care Unavailable [place], VIC Admitting Unavailable PROVIDER, UNKNOWN Consulting Unavailable [place], VIC Attending Unavailable [place], VIC Consulting Unavailable [place], VIC Primary Care Unavailable [place], VIC Admitting Unavailable PROVIDER, UNKNOWN Consulting Unavailable [place], VIC Attending Unavailable [place], VIC Consulting Unavailable [place], VIC Primary Care Unavailable [place], VIC Admitting Unavailable PROVIDER, UNKNOWN Consulting Unavailable [place] PA PA-C Vic Primary Care Provider [place] PA PA-C Vic Referring Provider [phone] Dr. Wali Gaspar Attending Provider [place] KERLINE, PA-C Vic Primary Care Provider Dr. Wali Gaspar Attending Provider [phone] Lidya Foy Referring Provider [place] KERLINE-C, Vic Torrez Primary Care Provider Jesus Erickson Attending Unavailable Vic Herbert Referring Unavailable Vic Herbert Primary Care Unavailable Vic Herbert Primary Care Unavailable Jesus Erickson Referring Unavailable Jesus Erickson Attending Unavailable Unavailable Primary Care Provider Unavailabl e Allergies Allergy Classification Reported Allergen(s) Allergy Type Date of Onset Reaction(s) Facility (2 sources) Acetaminophen / HYDROcodone; Translations: [HYDROCODONE-ACETA MINOPHEN] Drug Allergy 12-06-2013 GI Upset [facility] Work Phone: Medications Current Medications Medication Drug Class(es) Dates Sig (Normalized) Sig (Original) acetaminophen 325 mg / oxyCODONE hydrochloride 5 mg oral tablet (1 source) Opioid Agonist Start: 12-09-2013 take 1 tablet by mouth every four hours as needed for pain oxyCODONE-acetami nophen (PERCOCET) 5-325 mg tablet Indications: Biliary dyskinesia Take 1 tablet by mouth every 4 hours as needed for Pain. 10 tablet 0 12/09/2013 Active [id number] 200 actuat albuterol 0.09 mg/actuat metered dose inhaler (2 sources) beta2-Adrenergic Agonist Start: 08-18-2019 take 1 puff(s) by inhalation every six hours Albuterol Sulfate Active 2 PUFF INHALATION EVERY 6 HOURS August 17, 2019 11:00pm Ascorbic Acid (10 sources) Vitamin C Start: 10-03-2019 take 1 g by mouth every six hours Ascorbic Acid (Vitamin C) Active 1 GM PO EVERY 6 HOURS October 03, 2019 12:00am Start: 10-03-2019 take 1 g by mouth ev kristy six hours Ascorbic Acid (Vitamin C) Active 1 GM PO EVERY 6 HOURS October 03, 2019 12:00am azelastine hydrochloride 0.137 mg/actuat metered dose nasal spray (8 sources) Histamine-1 Receptor Antagonist Start: 06-09-2022 take 1 spray(s) nasal route twice daily Azelastine Active 2 SPRAY INTRANASAL TWICE A DAY June 09, 2022 12:00am administer into each nostril cephalexin 500 mg oral capsule (1 source) Cephalosporin Antibacterial Start: 06-02-2024 End: 06-07-2024 take 1 capsule by mouth three times daily cephALEXin (KEFLEX) 500 mg capsule Take 1 capsule by mouth three times a day for 5 days. 15 capsule 06/02/2024 06/07/2024 Active cholecalciferol 0.05 mg oral capsule (12 sources) Vitamin D Start: 10-21-2022 take 50 ug by mouth once daily Cholecalciferol (Vitamin D3) Active 50 MCG PO DAILY October 21, 2022 12:00am Start: 08-18-2019 End: 10-03-2019 take 125 ug by mouth once daily Cholecalciferol (Vitamin D3) Discontinued 125 MCG PO DAILY August 18, 2019 12:00am October 03, 2019 10:23am dicyclomine hydrochloride 10 mg oral capsule (1 source) Anticholinergic Start: 09-23-2023 End: 09-22-2024 take 1 capsule by mouth four times daily as needed for diarrhea dicyclomine (Bentyl) 10 mg capsule Indications: Irritable bowel syndrome with both constipation and diarrhea Take 1 capsule (10 mg) by mouth 4 times a day as needed (diarrhea). 120 capsule 5 09/23/2023 09/22/2024 Active Ethinyl Estradiol / Levonorgestrel (1 source) Progestin, Estrogen, Progestin-containing Intrauterine Device Start: 12-20-2013 take 1 tablet by mouth once daily Levonorgestrel-Et hinyl Estrad (LEVORA-28) 0.15-30 mg-mcg per tablet Take 1 tablet by mouth once daily. 3 Package 0 12/20/2013 Active ferrous sulfate 325 mg oral tablet (4 sources) Start: 10-21-2022 take 1 tablet by mouth once daily Ferrous Sulfate (Ferosul) 325 mg (65 mg iron) tablet Active 325 MG PO DAILY October 21, 2022 12:00am levothyroxine sodium 0.112 mg oral capsule (20 sources) l-Thyroxine Start: 05-01-2024 take 1 capsule by mouth once daily TIROSINT 112 mcg cap Take 1 capsule by mouth once daily. 05/01/2024 Active Start: 06-13-2023 levothyroxine (Synthroid, Levoxyl) 150 mcg tablet TAKE 1 TABLET BY MOUTH ONCE DAILY. ON SATURDAYS TAKE HALF A TABLET 06/13/2023 Active Start: 05-07-2022 Levothyroxine Active 175 MCG PO .COMPLEX 90 May 07, 2022 1:00am 175 mcg orally one daily Wed-Wednesday, 1/2 on Wednesday; Start: 04-16-2022 End: 05-07-2022 take 125 ug by mouth once daily Levothyroxine Disconti nued 125 MCG PO DAILY April 16, 2022 1:00am May 07, 2022 4:19pm Start: 08-18-2019 End: 04-16-2022 take 1 capsule by mouth once daily levothyroxine 112 mcg capsule Discontinued 112 MCG PO DAILY August 18, 2019 12:00am April 16, 2022 1:39pm Loratadine (1 source) LORATADINE (CLAR ITIN ORAL) Take by mouth. Active Magnesium Oxide,Aspartate,Ci tr (12 sources) Start: 10-21-2022 Magnesium Oxid e,Aspartate,Citr Active MG PO October 21, 2022 12:00am Start: 10-03-2019 End: 02-27-2022 Magnesium Oxide,Aspartate,Ci tr Discontinued MG PO October 03, 2019 12:00am February 27, 2022 10:57am Start: 10-03-2019 End: 02-27-2022 Magnesium Oxide,Aspartate,Ci tr Discontinued MG PO October 02, 2019 11:00pm February 27, 2022 9:57am oxyCODONE hydrochloride 5 mg oral tablet (2 sources) Opioid Agonist Start: 10-23-2022 take 5 mg by mouth every six hours Oxycodone Active 5 MG PO EVERY 6 HOURS 14 October 23, 2022 predniSONE 20 mg oral tablet (8 sources) Start: 06-09-2022 take 40 mg by mouth once daily Prednisone Active 40 MG PO DAILY 8 June 09, 2022 12:00am Prenat.Vits,Haresh,Min-I sandra-Folic (10 sources) Start: 02-27-2022 take 1 tablet by mouth once daily Prenat.Vits,Haresh,M lr-Gusr-Tuwqq Active 1 TABLET PO DAILY February 27, 2022 1:00am Start: 02-27-2022 take 1 tablet by quinn th once daily Prenat.Vits,Haresh,Sdr-Qnyk-Bmhlm Active 1 TABLET PO DAILY February 27, 2022 12:00am vit 91/iron/folic/d miller ( + DHA ORAL) (2 sources) take 2 tablets by mouth once daily vit 91/iron/folic/dha ( + DHA ORAL) Take 2 tablets by mouth once daily. Active Completed/Discontinued Medications Medication Drug Class(es) Dates Sig (Normalized) Sig (Original) albendazole 200 mg oral tablet (10 sources) Antihelminthic Start: 08-18-2019 End: 10-03-2019 take 200 mg by mouth twice daily at mealtime Albendazole Discontinued 200 MG PO TWICE A DAY August 18, 2019 12:00am October 03, 2019 10:22am must administer with food, preferably a high-fat meal biotin 1 mg oral capsule (11 sources) Start: 08-18-2019 End: 02-27-2022 take 1 mg by mouth once daily Biotin Discontinued 1 MG PO DAILY August 18, 2019 12:00am February 27, 2022 10:57am BIOTIN ORAL Take by mouth. Active cefdinir 300 mg oral capsule (8 sources) Cephalosporin Antibacterial Start: 06-09-2022 End: 10-23-2022 take 300 mg by mouth twice daily Cefdinir Discontinued 300 MG PO TWICE A DAY 14 June 09, 2022 12:00am October 23, 2022 8:24am docusate sodium 50 mg / sennosides, skilled nursing 8.6 mg oral tablet (10 sources) Start: 01-31-2015 End: 03-31-2017 take 1 tablet by mouth once daily as needed Sennosides-Docusate Sodium Discontinued 1 - 2 TABLET PO DAILY NEEDED February 01, 2015 12:12am March 31, 2017 2:30pm Norgestimate-Eth inyl Estradiol (10 sources) Progestin, Estrogen Start: 03-31-2017 End: 02-27-2022 take 1 tablet by mouth once daily Norgestimate-Ethiny l Estradiol (Sprintec (28)) 0.25-35 mg-mcg tablet Discontinued 1 TABLET PO daily March 31, 2017 1:00am February 27, 2022 10:57am Start: 03-31-2017 End: 02-27-2022 take 1 tablet by mouth once daily Norgestimate-Ethinyl Estradiol (Sprintec (28)) 0.25-35 mg-mcg tablet Discontinued 1 TABLET PO daily March 31, 2017 12:00am February 27, 2022 9:57am magnesium chloride 535 mg delayed release oral tablet (10 sources) Start: 08-18-2019 End: 10-03-2019 take 64 mg by mouth once daily Magnesium Chloride Discontinued 64 MG PO DAILY August 18, 2019 12:00am October 03, 2019 10:24am naproxen 250 mg oral tablet (10 sources) Nonsteroidal Anti-inflammatory Drug Start: 01-31-2015 End: 03-31-2017 take 1 tablet by mouth twice daily as needed Naproxen Discontinued 1 - 2 TABLET PO TWICE DAILY NEEDED January 31, 2015 1:00am March 31, 2017 2:30pm Drug Treatment Unknown - unknown (2 sources) No information available. Vit,Ijka13-Cjzm-S olic (10 sources) Start: 10-31-2014 End: 03-31-2017 take 1 tablet by mouth once daily Vit,Auau77-Iojj-Xlm ic Discontinued 1 TABLET PO DAILY October 31, 2014 12:00am March 31, 2017 2:30pm Start: 10-31-2014 End: 03-31-2017 take 1 tablet by mouth once daily Vit,Nech59-Oixo-Pnowv Discontinued 1 TABLET PO DAILY October 30, 2014 11:00pm March 31, 2017 1:30pm Selenium (10 sources) Start: 08-18-2019 End: 10-03-2019 take 50 ug by mouth once daily Selenium Discontinued 50 MCG PO DAILY August 18, 2019 12:00am October 03, 2019 10:24am Start: 08-18-2019 End: 10-03-2019 take 50 ug by mouth once daily Selenium Discontinued 5 0 MCG PO DAILY August 17, 2019 11:00pm October 03, 2019 9:24am Vitamin B Complex (Super B-50 Complex) capsule (10 sources) Start: 08-18-2019 End: 10-03-2019 take 1 capsule by mouth once daily Vitamin B Complex (Super B-50 Complex) capsule Discontinued 1 CAP PO DAILY August 18, 2019 12:00am October 03, 2019 10:24am Start: 08-18-2019 End: 10-03-2019 take 1 capsule by mouth once daily Vitamin B Complex (Super B-50 Complex) capsule Discontinued 1 CAP PO DAILY August 17, 2019 11:00pm October 03, 2019 9:24am Problems Active Problems Problem Classification Problem Date Documented Da te Episodic/Chronic Allergic reactions (3 sources) Non-celiac gluten sensitivity; Translations: [Non-celiac gluten sensitivity] Onset: 08-12-2023 08-12-2023 Chronic Cardiac dysrhythmias (4 sources) Palpitations; Translations: [Palpitations] 10-15-2022 Episodic Deficiency and other anemia (1 source) Anemia, unspecified; Translations: [Anemia, unspecified] Onset: 09-15-2022 Episodic Nonmalignant breast conditions (1 source) Mastodynia; Translations: [Mastodynia] 06-02-2024 Episodic Nutritional deficiencies (13 sources) Iron deficiency; Translations: [Iron deficiency] Episodic Other complications of ; puerperium affecting management of mother (2 sources) Deliveries by ; Translations: [Encounter for delivery without indication] 10-24-2022 Episodic Other complications of ; puerperium affecting management of mother (2 sources) Encounter for delivery without indication; Translations: [ delivery, without mention of indication, delivered, with or without mention of antepartum condition] 10-24-2022 Episodic Other complications of (10 sources) Hypothyroidism in ; Translations: [Endocrine, nutritional and metabolic diseases complicating , first trimester] 02-27-2022 Episodic Other complications of (3 sources) Endocrine, nutritional and metabolic diseases complicating , first trimester; Translations: [Thyroid dysfunction of mother, antepartum condition or complication] Episodic Other female genital disorders (1 source) Abnormal uterine bleeding; Translations: [Abnormal uterine and vaginal bleeding, unspecified] Onset: 05-04-2013 05-04-2013 Chronic Other gastrointestinal disorders (4 sources) Irritable bowel syndrome; Translations: [Mixed irritable bowel syndrome] Onset: 08-12-2023 08-12-2023 Chronic Other nervous system disorders (2 sources) Postoperative pain ; Translations: [Other acute postprocedural pain] 10-23-2022 Episodic Other upper respiratory infections (8 sources) Upper respiratory infection; Translations: [Acute upper respiratory infection, unspecified] 06-09-2022 Episodic Otitis media and related conditions (8 sources) Acute right otitis media; Translations: [Otitis media, unspecified, right ear] 06-09-2022 Episodic Thyroid disorders (14 sources) 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; Translations: [Other specified hypothyroidism] Onset: 08-12-2023 10-05-2019 Chronic Unclassified (2 sources) No current problems or disability 04-08-2017 Past or Other Problems Problem Classification Problem Date Documented Da te Episodic/Chronic Biliary tract disease (1 source) Biliary dyskinesia; Translations: [Other specified diseases of gallbladder] Onset: 11-16-2013 11-16-2013 Episodic Ovarian cyst (1 source) Cyst of ovary; Translations: [Unspecified ovarian cyst, unspecified side] Onset: 05-04-2013 05-04-2013 Episodic Urinary tract infections (1 source) Urinary tract infection, site not specified; Translations: [Urinary tract infection, site not specified] Onset: 03-03-2022 Episodic Results Test Name Value Interpretation Reference Range Facility CNOVon 06-02-2024 CNOV Office Visit (UCWSTR ) MEDHAT GO ([id number]) 1995 F Date Time Provider Department 06/02/24 8:30 AM MYRIAM TRIPP [facility] During your visit today, we recorded the following information about you: Temperature Pulse Respiration Blood pressure 98.2 degrees 98/minute 16/minute 98/62 Weight Last Period 49.2 kg 05/07/24 Myriam Tripp APRN.SPOOL WORKER 06/02/2024 9:18 AM Signed Subjective HPI Nontoxic-appearing 29-year-old female currently breast-feeding 1 and [id number]-[id number] child presents today for possible mastitis. States increased right breast pain over the last 4 days. States additionally family had does not and she is currently recovering from gastroenteritis. States did notice some swelling under her right breast yesterday. Some streaking as well. Has not used any OTC medications. Has been afebrile for the last 24 hours. no breast discharge. Past medical history prescription medications allergies reviewed. .Patient presents with: breast pain, R PAST MEDICAL HISTORY Diagnosis Date Biliary dyskinesia 12/05/13 NEGATIVE MEDICAL HISTORY PAST SURGICAL HISTORY Procedure Laterality Date LAPAROSCOPY SURG CHOLECYSTECTOMY 12/05/13 MYRINGOTOMY ASPIRAND/EUSTACHIAN TUBE NFLTJ ANES 1997 Myringotomy/tubes ALLERGIES [place] [Hydrocodone-Acetaminophen] MEDICATIONS TIROSINT 112 mcg cap Take 1 capsule by mouth once daily. cephALEXin (KEFLEX) 500 mg capsule Take 1 capsule by mouth three times a day for 5 days. Levonorgestrel-Ethinyl Estrad (LEVORA-28) 0.15-30 mg-mcg per tablet Take 1 tablet by mouth once daily. oxyCODONE-acetaminophen (PERCOCET) 5-325 mg tablet Take 1 tablet by mouth every 4 hours as needed for Pain. BIOTIN ORAL Take by mouth. LORATADINE (CLARITIN ORAL) Take by mouth. FAMILY HISTORY Problem Relation Age of Onset Hypertension Maternal Grandfather Hypertension Father Asthma Father Alzheimer's Disease Paternal Grandmother other (Parkinson's Disease [Other]) Paternal Grandmother Asthma Paternal Grandfather Hypertension Paternal Grandfather Social History Tobacco Use Smoking status: Every Day Current packs/day: 0.50 Average packs/day: 0.5 packs/day for 13.5 years (6.8 ttl pk-yrs) Types: Cigarettes Start date: 11/16/2010 Smokeless tobacco: Never Substance Use Topics Alcohol use: No Drug use: No BP 98/62 Pulse 98 Temp 36.8 ?C (98.2 ?F) Resp 16 Wt 49.2 kg (108 lb 7.5 oz) LMP 05/07/2024 SpO2 99% Yes Review of Systems Constitutional: Positive for malaise/fatigue. Negative for chills and fever. HENT: Negative for congestion, ear discharge, ear pain, sinus pain and sore throat. Eyes: Negative for blurred vision, pain, discharge and redness. Respiratory: Negative for cough, hemoptysis, sputum production, shortness of breath, wheezing and stridor. Cardiovascular: Negative for chest pain. Gastrointestinal: Negative for abdominal pain, diarrhea, nausea and vomiting. Musculoskeletal: Positive for myalgias. Skin: Negative for itching and rash. Neurological: Negative for dizziness and headaches. Objective Physical Exam Exam conducted with a aws consultant present. Constitutional: General: She is not in acute distress. Appearance: She is not diaphoretic. HENT: Head: Normocephalic. Jaw: No trismus, tenderness, swelling or pain on movement. Mouth/Throat: Mouth: Mucous membranes are moist. Pharynx: Oropharynx is clear. Uvula midline. No pharyngeal swelling, oropharyngeal exudate, posterior oropharyngeal erythema or uvula swelling. Eyes: Conjunctiva/sclera: Conjunctivae normal. Pupils: Pupils are equal, round, and reactive to light. Cardiovascular: Rate and Rhythm: Normal rate and regular rhythm. Heart sounds: Normal heart sounds. Pulmonary: Effort: Pulmonary effort is normal. No tachypnea, accessory muscle usage or respiratory distress. Breath sounds: Normal breath sounds. No stridor. No wheezing, rhonchi or rales. Chest: Comments: Mild discomfort with palpation highlighted area. Mild edema noted. No erythema. No streaking. No adenopathy. No drainage or discharge. Abdominal: General: There is no distension. Palpations: Abdomen is soft. Tenderness: There is no abdominal tenderness. There is no guarding or rebound. Musculoskeletal: Cervical back: Normal range of motion and neck supple. No edema, erythema, rigidity or tenderness. No pain with movement. Normal range of motion. Lymphadenopathy: Cervical: No cervical adenopathy. Skin: General: Skin is warm and dry. Neurological: Mental Status: She is alert and oriented to person, place, and time. ASSESSMENT/PLAN: 1. Breast pain, right - ICD9: 611.71, ICD10: N64.4 Diagnosed with right wrist pain. Suspicious of early mastitis. Placed on Keflex. Patient was educated on supportive therapies. Patient will follow up with primary care provider 3 to 5 d (more content not included)... Normal [facility] Endocrinology Visit Reporton 04-28-2024 Endocrinology Visit Report [facility] [address] [place] [address] OFFICE VISIT Date of Service: 04/28/24 MR#: [id number] Acct: [id number] Name: MEDHAT GO Rep #: [id number] : 1995 Provider: Héctor Gray Age/Sex: 29/F Location: [facility] [place] Status: Signed Intake Vital Signs 10/23/22 05:22 04/28/24 12:58 Height 4 ft 11 in 4 ft 11 in Weight: 113 lb 6 oz BMI 22.8 BP 102/64 Blood Pressure Location Rt brachial Position Sitting Pulse 78 Pulse Source Monitor Pulse Oximetry (%) 98 Oxygen Delivery Method room air Intake Visit Reasons: 1 Y FU Chief Complaint: Hypothyroidism Is patient in pain?: No Allergies No Known Allergies Allergy (Verified 04/28/24 13:00) Medications ???Medication ???Instructions ???Recorded ???Confirmed ???Type levothyroxine 112 mcg tablet 112 mcg PO QDAY #60 tabs 03/13/24 04/28/24 Rx Tirosint 112 mcg capsule 112 mcg PO QDAY #90 caps 04/28/24 04/28/24 Rx (levothyroxine) multivitamin 1 tab PO QAM 04/28/24 04/28/24 His tory [facility], [facility] Medical History Palpitations Iron deficiency Hypothyroidism affecting in first trimester Menorrhagia Dysmenorrhea Hyperthyroidism Surgical History History of surgery History of tonsillectomy ( 2015) Hx of cholecystectomy ( 2012) Family History Mother No pertinent past medical history Father No pertinent past medical history Social History Smoking Status: Former smoker alcohol intake: never substance use type: does not use caffeine: No HPI HPI Chief Complaint: Hypothyroidism Details: MEDHAT GO, is a 29 F who presents to the office today for follow up. She has hypothyroidism and is taking levothyroxine 112 mcg. TSH is normal at 2.81 She is feeling well. She is asking about desiccated thyroid hormone as she is trying avoid the fillers and dyes in levothyroxine. She is accompanied by her charming 18 month old daughter. ROS Const Constitutional: No fatigue, weight change or change in appetite Eyes Eyes: No change in vision ENT ENT: No dizziness/vertigo or difficulty swallowing Cardio Cardiology: No chest pain at rest, chest pain with exertion, shortness of breath or palpitations Musc Musculoskeletal: No abnormal gait, joint pain, numbness or tingling Neuro Neurology: No abnormal gait, memory loss, numbness or tingling Psych Psychiatric: No change in appetite, No memory loss and No Thoughts of harming yourself/Others Resp Respiratory: No cough, chest congestion or shortness of breath Gastro GI: No abdominal pain, constipation, diarrhea or difficulty swallowing Genitourinary-Female: No burning urination Skin Skin: No itchy eyes or wounds Endo Endocrine: No fatigue or weight change Aller/Imm Allergy/Immunologic: No itchy eyes Exam Const General: cooperative, healthy appearing, comfortable, no acute distress, well developed and not cushingoid Nutritional Appearance: well nourished Orientation: alert, awake and oriented x3 HENMT Head: normal to inspection Ears: hearing grossly normal bilaterally Nose: external nose normal Mouth: oral mucosae normal Eyes General: appearance normal, both eyes and all related structures Alignment and Position: alignment normal Periorbital: periorbital findings normal Eyelids: eyelids normal Conjunctivae: conjunctivae normal Neck Neck: normal visual inspection Neck mass: No Thyroid: thyroid normal Lymphatic: no lymphadenopathy noted Chest Chest palpation inspection: normal inspection of the chest Resp Effort Inspection: normal respiratory effort, able to speak in complete sentences, symmetric chest movement, no audible wheezes and no cough Cardio Rate: regular rate Rhythm: regular rhythm Skin General: no rashes or lesions noted Neuro General: patient alert, patient awake and patient oriented x3 Cranial Nerves: CN's II-XI intact bilaterally Cognition: normal cognition Speech: speech normal Gait: normal gait Motor: muscle tone normal throughout Extrem General: no edema Psych Appearance: grossly normal Mental Status: mental status grossly normal Mood: congruent mood Affect: normal affect Speech and Movement: speech and movement normal Attitude: cooperative Thought Process: normal Thought Content: normal Judgment: judgment good Assessment and Plan Assessment and Plan (1) 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 Then wait 30-60 minut (more content not included)... Normal [facility] T4 Free Directon 04-25-2024 T4 FREE DIRECT 1.28 ng/dL Normal 0.76-1.46 [facility] Comment on above: Performed By: #### L [id number], [id number] #### [facility] [address] [place], [address] Thyroid Stim Hormone (TSH)on 04-25-2024 TSH 2.810 uIU/mL Normal 0.358-3.740 [facility] Comment on above: Performed By: #### L [id number], [id number] #### [facility] [place] [address], [address] Laboratory - Chemistry and C hemistry - challengeOrdered By: Lidya Foy on 12-04-2022 Free T4 [Mass/Vol] 1.92 ng/dL 0.76-1.46 [facility] No Panel InformationOrdered By: Lidya Foy on 12-04-2022 Thyroid Stimulating Hormone (TSH) 0.01 uIU/mL 0.358-3.74 [facility] Basophil percentageOrdered B y: Lidya Foy on 10-24-2022 WBC (Bld) [#/Vol] 15.9 10*3/uL 4.4-11.0 [facility] Blood erythrocytes count (nu mber/volume)Ordered By: Lidya Foy on 10-24-2022 RBC (Bld) [#/Vol] 2.93 10*6/uL 4.2-5.4 [facility] Blood hemoglobin measurement (mass/volume)Ordered By: Lidya Foy on 10-24-2022 Hemoglobin (Bld) [Mass/Vol] 8.7 g/dL 12.0-15.0 [facility] Blood platelet mean volumeOr dered By: Lidya Foy on 10-24-2022 Platelet mean volume (Bld) [Entitic vol] 9.5 fL 6.2-12.0 [facility] Determination of erythrocyte mean corpuscular volume (MCV)Ordered By: Lidya Foy on 10-24-2022 MCV (RBC) [Entitic vol] 91.1 fL 81-99 [facility] Hematocrit Auto (Bld) [Volum e fraction]Ordered By: Lidya Foy on 10-24-2022 Hematocrit (Bld) [Volume fraction] 26.7 % 37-47 [facility] Laboratory - Hematology and Cell countsOrdered By: Lidya Foy on 10-24-2022 Erythrocyte distribution width (RBC) [Entitic vol] 46.0 fL 35.1-43.9 [facility] Erythrocyte distribution width (RBC) [Ratio] 13.9 % 11.6-14.6 [facility] MCH (RBC) [Entitic mass] 29.7 pg 27.0-32.0 [facility] MCHC Auto (RBC) [Mass/Vol]Or dered By: Lidya Foy on 10-24-2022 MCHC (RBC) [Mass/Vol] 32.6 g/dL 32-36 [facility] Platelets bldOrdered By: Marisol ngocbryan Foy on 10-24-2022 Platelets (Bld) [#/Vol] 177 10*3/uL 150-450 [facility] Absolute lymphocyte countOrd ered By: Lidya Foy on 10-23-2022 Lymphocytes Auto (Unsp spec) [#/Vol] 2.31 10*3/uL 0.83-4.51 [facility] Basophil percentageOrdered B y: Lidya Foy on 10-23-2022 Basophils/100 WBC (Bld) 0.6 % 0-1 [facility] Eosinophils/100 WBC (Bld) 1.2 % 0-5 [facility] Neutrophils (Bld) [#/Vol] 5.8 10*3/uL 2.0-7.7 [facility] Neutrophils/100 WBC (Bld) 64.5 % 47-70 [facility] Blood lymphocytes/100 leukoc ytesOrdered By: Lidya Foy on 10-23-2022 Lymphocytes/100 WBC (Bld) 25.6 % 19-41 [facility] Blood monocytes/100 leukocyt esOrdered By: Lidya Foy on 10-23-2022 Monocytes/100 WBC (Bld) 6.1 % 0-10 [facility] Laboratory - Hematology and Cell countsOrdered By: Lidya Foy on 10-23-2022 Immature granulocytes/100 WBC (Bld) 2.000 % 0.0-0.9 [facility] Comment on above: IG% - Immature Granu locytes (promyelocytes, myelocytes and metamyelocytes) > 1% indicates that a LEFT SHIFT is Present. Nucleated RBC/100 WBC (Bld) [Ratio] 0 % 0-5 [facility] Serum Treponema species anti body detectionOrdered By: Lidya Foy on 10-23-2022 Treponema sp Ab Ql (S) Non-Reactive [facility] Laboratory - Chemistry and C hemistry - challengeOrdered By: Lidya Foy on 10-14-2022 Free T4 [Mass/Vol] 1.31 ng/dL 0.76-1.46 [facility] No Panel InformationOrdered By: Lidya Foy on 10-14-2022 Thyroglobulin Antibody 3.5 IU/mL 0.0-0.9 [facility] Comment on above: Thyroglobulin Antibo dy measured by InfotrieveMethodologyPerformed at: CB - [facility] [id number] [place], [place] [id number] Director: Cosmo Caicedo PhD, Phone: [phone] Thyroid Stimulating Hormone (TSH) 0.65 uIU/mL 0.358-3.74 [facility] Serum or plasma thyroperoxid ase antibody assay (units/volume)Ordered By: Lidya Foy on 10-14-2022 TPO Ab Qn 97 [IU]/mL 0-34 [facility] No Panel InformationOrdered By: Lidya Foy on 10-07-2022 Group B Streptococcus Culture Group B Beta Streptococcus is not isolated. [facility] FOLATESon 09-15-2022 FOLATES 25.4 ng/ml Normal 8.6 - 58.9 [facility] Comment on above: Performed By: #### [id number] #### [facility],[address] [place] [address] VITAMIN B-12on 09-15-2022 Cobalamin (Vitamin B12) [Mass/Vol] 352 pg/mL Normal 193 - 986 [facility] Comment on above: Performed By: #### [id number] #### [facility],[address] [place] [id number] Absolute lymphocyte countOrd ered By: Miya Nicholas on 09-11-2022 Lymphocytes Auto (Unsp spec) [#/Vol] 1.65 10*3/uL 0.83-4.51 [facility] Basophil percentageOrdered B y: Miya Nicholas on 09-11-2022 Basophils/100 WBC (Bld) 0.3 % 0-1 [facility] Bilirubin [Mass/Vol] 0.30 mg/dL 0.20-1.00 [facility] Comment on above: For patients on eltr ombopag therapy, use of Dimension Sloan TBIL is not recommended. Chloride [Moles/Vol] 106 mmol/L 98-107 [facility] Eosinophils/100 WBC (Bld) 1.2 % 0-5 [facility] Glucose [Mass/Vol] 107 mg/dL 74-106 [facility] Comment on above: Fasting Glucose resu lt from 100 to 125 mg/dL suggests IMPAIRED HOMEOSTASIS per A.D.A. criteria. Neutrophils (Bld) [#/Vol] 6.4 10*3/uL 2.0-7.7 [facility] Neutrophils/100 WBC (Bld) 71.0 % 47-70 [facility] Potassium [Moles/Vol] 3.9 mmol/L 3.5-5.1 [facility] Protein [Mass/Vol] 6.7 g/dL 6.4-8.2 [facility] Sodium [Moles/Vol] 138 mmol/L 136-145 [facility] WBC (Bld) [#/Vol] 9.0 10*3/uL 4.4-11.0 [facility] Blood erythrocytes count (nu mber/volume)Ordered By: Miya Nicholas on 09-11-2022 RBC (Bld) [#/Vol] 3.38 10*6/uL 4.2-5.4 [facility] Blood hemoglobin measurement (mass/volume)Ordered By: Miya Nicholas on 09-11-2022 Hemoglobin (Bld) [Mass/Vol] 10.1 g/dL 12.0-15.0 [facility] Blood lymphocytes/100 leukoc ytesOrdered By: Miya Nicholas on 09-11-2022 Lymphocytes/100 WBC (Bld) 18.3 % 19-41 [facility] Blood monocytes/100 leukocyt esOrdered By: Miya Nicholas on 09-11-2022 Monocytes/100 WBC (Bld) 5.5 % 0-10 [facility] Blood platelet mean volumeOr dered By: Miya Nicholas on 09-11-2022 Platelet mean volume (Bld) [Entitic vol] 9.1 fL 6.2-12.0 [facility] Determination of erythrocyte mean corpuscular volume (MCV)Ordered By: Miya Nicholas on 09-11-2022 MCV (RBC) [Entitic vol] 91.1 fL 81-99 [facility] Hematocrit Auto (Bld) [Volum e fraction]Ordered By: Miya Nicholas on 09-11-2022 Hematocrit (Bld) [Volume fraction] 30.8 % 37-47 [facility] Laboratory - Chemistry and C hemistry - challengeOrdered By: Miya Nicholas on 09-11-2022 ALP [Catalytic activity/Vol] 93 U/L 45-117 [facility] ALT [Catalytic activity/Vol] 13 U/L 13-56 [facility] CO2 [Moles/Vol] 23.0 mmol/L 21.0-32.0 [facility] Globulin (S) [Mass/Vol] 3.9 g/dL 2.2-4.2 [facility] Urea nitrogen/Creatinine [Mass ratio] 13.4 mg/mg 10-20 [facility] Laboratory - Hematology and Cell countsOrdered By: Miya Nicholas on 09-11-2022 Erythrocyte distribution width (RBC) [Entitic vol] 46.9 fL 35.1-43.9 [facility] Erythrocyte distribution width (RBC) [Ratio] 14.1 % 11.6-14.6 [facility] Immature granulocytes/100 WBC (Bld) 3.700 % 0.0-0.9 [facility] Comment on above: IG% - Immature Granu locytes (promyelocytes, myelocytes and metamyelocytes) > 1% indicates that a LEFT SHIFT is Present. MCH (RBC) [Entitic mass] 29.9 pg 27.0-32.0 [facility] Nucleated RBC/100 WBC (Bld) [Ratio] 0 % 0-5 [facility] MCHC Auto (RBC) [Mass/Vol]Or dered By: Miya Nicholas on 09-11-2022 MCHC (RBC) [Mass/Vol] 32.8 g/dL 32-36 [facility] No Panel InformationOrdered By: Miya Nicholas on 09-11-2022 Estimated GFR (MDRD) Amer 182 mL/min >60 [facility] Comment on above: GFR Calc Estimated GFR (MDRD) Non-Af Amer 150 mL/min >60 [facility] Comment on above: Non- GFR Calc Platelets bldOrdered By: Maddie Nicholas on 09-11-2022 Platelets (Bld) [#/Vol] 177 10*3/uL 150-450 [facility] Serum or plasma albumin chai urement (mass/volume)Ordered By: Miya Nicholas on 09-11-2022 Albumin [Mass/Vol] 2.8 g/dL 3.2-5.0 [facility] Serum or plasma albumin/glob ulin mass ratioOrdered By: Miya Nicholas on 09-11-2022 Albumin/Globulin [Mass ratio] 0.7 {ratio} 0.9-2.4 [facility] Serum or plasma calcium chai urement (mass/volume)Ordered By: Miya Nicholas on 09-11-2022 Calcium [Mass/Vol] 8.6 mg/dL 8.5-10.1 [facility] Serum or plasma creatinine m easurement (mass/volume)Ordered By: Miya Nicholas on 09-11-2022 Creatinine [Mass/Vol] 0.52 mg/dL 0.55-1.02 [facility] Comment on above: The validity of the calculated GFR & GFRAA in patients over 70 years has not been determined. Clinical correlation is essential. Serum or plasma ferritin modesta surement (mass/volume)Ordered By: Miya Nicholas on 09-11-2022 Ferritin [Mass/Vol] 93 ng/mL 8-252 [facility] Serum or plasma urea nitroge n measurement (mass/volume)Ordered By: Miya Nicholas on 09-11-2022 Urea nitrogen [Mass/Vol] 7 mg/dL 7-18 [facility] Thin prep Papanicolaou smear with manual screeningOrdered By: Miya Nicholas on 09-11-2022 Thin prep Papanicolaou smear with manual screening 14 U/L 15-37 [facility] Thin prep Papanicolaou smear with manual screening 9 5-15 [facility] Laboratory - Chemistry and C hemistry - challengeOrdered By: Dr. Foy on 08-28-2022 Free T4 [Mass/Vol] 1.27 ng/dL 0.76-1.46 [facility] No Panel InformationOrdered By: Dr. Foy on 08-28-2022 Thyroid Stimulating Hormone (TSH) 1.52 uIU/mL 0.358-3.74 [facility] Serum or plasma ferritin modesta surement (mass/volume)Ordered By: Dr. Foy on 08-28-2022 Ferritin [Mass/Vol] 100 ng/mL 8-252 [facility] Absolute lymphocyte countOrd ered By: Dr. Foy on 07-31-2022 Lymphocytes Auto (Unsp spec) [#/Vol] 1.82 10*3/uL 0.83-4.51 [facility] Basophil percentageOrdered B y: Dr. Foy on 07-31-2022 Basophil percentage Not Reportable W [facility] Neutrophils (Bld) [#/Vol] 7.5 10*3/uL 2.0-7.7 [facility] WBC (Bld) [#/Vol] 10.9 10*3/uL 4.4-11.0 [facility] Blood band neutrophil count as percentage of total leukocytesOrdered By: Dr. Foy on 07-31-2022 Band form neutrophils/100 WBC (Bld) 1 % 0-5 [facility] Blood erythrocytes count (nu mber/volume)Ordered By: Dr. Foy on 07-31-2022 RBC (Bld) [#/Vol] 3.17 10*6/uL 4.2-5.4 [facility] Blood hemoglobin measurement (mass/volume)Ordered By: Dr. Foy on 07-31-2022 Hemoglobin (Bld) [Mass/Vol] 9.4 g/dL 12.0-15.0 [facility] Blood lymphocytes/100 leukoc ytesOrdered By: Dr. Foy on 07-31-2022 Lymphocytes/100 WBC (Bld) 18 % 19-41 [facility] Blood monocytes/100 leukocyt esOrdered By: Dr. Foy on 07-31-2022 Monocytes/100 WBC (Bld) 7 % 0-10 [facility] Blood platelet adequacy dete ction by light microscopyOrdered By: Dr. Foy on 07-31-2022 Platelets LM Ql (Bld) ADEQUATE ADEQ [facility] Blood platelet mean volumeOr dered By: Dr. Foy on 07-31-2022 Platelet mean volume (Bld) [Entitic vol] 8.7 fL 6.2-12.0 [facility] Blood segmented neutrophils/ [address]: [address] Foy on 07-31-2022 Segmented neutrophils/100 WBC (Bld) 73 % 47-70 [facility] Determination of erythrocyte mean corpuscular volume (MCV)Ordered By: Dr. Foy on 07-31-2022 MCV (RBC) [Entitic vol] 91.5 fL 81-99 [facility] Gestational diabetes screen 1-hour screen with 50g oral glucose loadOrdered By: Dr. Foy on 07-31-2022 Glucose 1 Hr post 50 g glucose PO [Mass/Vol] 132 mg/dL 70-140 [facility] Hematocrit Auto (Bld) [Volum e fraction]Ordered By: Dr. Foy on 07-31-2022 Hematocrit (Bld) [Volume fraction] 29.0 % 37-47 [facility] Laboratory - Chemistry and C hemistry - challengeOrdered By: Dr. Foy on 07-31-2022 Free T4 [Mass/Vol] 1.26 ng/dL 0.76-1.46 [facility] Laboratory - Hematology and Cell countsOrdered By: Dr. Foy on 07-31-2022 Erythrocyte distribution width (RBC) [Entitic vol] 45.3 fL 35.1-43.9 [facility] Erythrocyte distribution width (RBC) [Ratio] 13.5 % 11.6-14.6 [facility] MCH (RBC) [Entitic mass] 29.7 pg 27.0-32.0 [facility] Myelocytes/100 WBC (Bld) 1 % 0-0 [facility] MCHC Auto (RBC) [Mass/Vol]Or dered By: Dr. Foy on 07-31-2022 MCHC (RBC) [Mass/Vol] 32.4 g/dL 32-36 [facility] No Panel InformationOrdered By: Dr. Foy on 07-31-2022 Thyroid Stimulating Hormone (TSH) 1.72 uIU/mL 0.358-3.74 [facility] Platelets bldOrdered By: Dr. Foy on 07-31-2022 Platelets (Bld) [#/Vol] 237 10*3/uL 150-450 [facility] RBC morphologyOrdered By: Dr Karen Foy on 07-31-2022 RBC morphology finding Nom (Bld) NORM C+C NORMAL NORM C&C [facility] Review by pathologistOrdered By: Dr. Foy on 07-31-2022 Pathologist review Aman (Unsp spec) [Interp] Reviewed [facility] Comment on above: Previous reported re sult: July ellis Edited by: RGOOD on 08/04/22:0946Neutrophilic left shift.Normocytic anemia.Clinical correlation necessary.Jack Grewal M.D. 08/04/22 AMENDED REPORT 08/04/22 0946 PATH REV previously reported as: July ellis Serum Treponema species anti body detectionOrdered By: Dr. Foy on 07-31-2022 Treponema sp Ab Ql (S) Non-Reactive [facility] Total cell countOrdered By: Dr. Foy on 07-31-2022 Cells counted Molgen (Bld/Tiss) [#] 100 MANUAL DIFF [facility] Laboratory - Chemistry and C hemistry - challengeOrdered By: Dr. Foy on 06-26-2022 Free T4 [Mass/Vol] 1.24 ng/dL 0.76-1.46 [facility] No Panel InformationOrdered By: Dr. Foy on 06-26-2022 Free Triiodothyronine (T3) pg/dL 2.4 pg/mL 2.18-3.98 [facility] Thyroid Stimulating Hormone (TSH) 0.85 uIU/mL 0.358-3.74 [facility] Serum or plasma ferritin modesta surement (mass/volume)Ordered By: Dr. Foy on 06-26-2022 Ferritin [Mass/Vol] 183 ng/mL 8-252 [facility] Basophil percentageOrdered B y: Dr. Foy on 04-27-2022 WBC (Bld) [#/Vol] 7.6 10*3/uL 4.4-11.0 [facility] Blood erythrocytes count (nu mber/volume)Ordered By: Dr. Foy on 04-27-2022 RBC (Bld) [#/Vol] 3.69 10*6/uL 4.2-5.4 [facility] Blood hemoglobin measurement (mass/volume)Ordered By: Dr. Foy on 04-27-2022 Hemoglobin (Bld) [Mass/Vol] 11.1 g/dL 12.0-15.0 [facility] Blood platelet mean volumeOr dered By: Dr. Foy on 04-27-2022 Platelet mean volume (Bld) [Entitic vol] 8.9 fL 6.2-12.0 [facility] Determination of erythrocyte mean corpuscular volume (MCV)Ordered By: Dr. Foy on 04-27-2022 MCV (RBC) [Entitic vol] 89.4 fL 81-99 [facility] Hematocrit Auto (Bld) [Volum e fraction]Ordered By: Dr. Foy on 04-27-2022 Hematocrit (Bld) [Volume fraction] 33.0 % 37-47 [facility] Laboratory - Chemistry and C hemistry - challengeOrdered By: Dr. Foy on 04-27-2022 Cobalamin (Vitamin B12) [Mass/Vol] 533 pg/mL 211-911 [facility] Free T4 [Mass/Vol] 1.18 ng/dL 0.76-1.46 [facility] Laboratory - Hematology and Cell countsOrdered By: Dr. Foy on 04-27-2022 Erythrocyte distribution width (RBC) [Entitic vol] 42.4 fL 35.1-43.9 [facility] Erythrocyte distribution width (RBC) [Ratio] 13.0 % 11.6-14.6 [facility] MCH (RBC) [Entitic mass] 30.1 pg 27.0-32.0 [facility] MCHC Auto (RBC) [Mass/Vol]Or dered By: Dr. Foy on 04-27-2022 MCHC (RBC) [Mass/Vol] 33.6 g/dL 32-36 [facility] No Panel InformationOrdered By: Dr. Foy on 04-27-2022 Miscellaneous Test See comment [facility] Comment on above: Sent directly to [facility] per ordering physician. Free Triiodothyronine (T3) pg/dL 2.2 pg/mL 2.18-3.98 [facility] Thyroid Stimulating Hormone (TSH) 7.73 uIU/mL 0.358-3.74 [facility] Vitamin D 25-Hydroxy 71.0 ng/mL [facility] Comment on above: Vitamin D 25(OH) Sta tus Range Deficiency <20 ng/mL (50nmol/L) Insufficiency 20 - 30 ng/mL (50 - 75 nmol/L) Sufficiency 30 - 100 ng/mL (75 - 250 nmol/L) Toxicity >100 ng/mL (>250 nmol/L) Platelets bldOrdered By: Dr. Foy on 04-27-2022 Platelets (Bld) [#/Vol] 256 10*3/uL 150-450 [facility] Serum or plasma ferritin modesta surement (mass/volume)Ordered By: Dr. Foy on 04-27-2022 Ferritin [Mass/Vol] 182 ng/mL 8-252 [facility] Culture, urineOrdered By: Dr Karen Foy on 03-28-2022 Bacteria identified Cx Nom (U) Presumptive Lactobacillus sp. [facility] Absolute lymphocyte countOrd ered By: Dr. Foy on 03-26-2022 Lymphocytes Auto (Unsp spec) [#/Vol] 1.82 10*3/uL 0.83-4.51 [facility] Basophil percentageOrdered B y: Dr. Foy on 03-26-2022 Basophils/100 WBC (Bld) 0.5 % 0-1 [facility] Eosinophils/100 WBC (Bld) 0.9 % 0-5 [facility] Neutrophils (Bld) [#/Vol] 6.1 10*3/uL 2.0-7.7 [facility] Neutrophils/100 WBC (Bld) 70.9 % 47-70 [facility] WBC (Bld) [#/Vol] 8.6 10*3/uL 4.4-11.0 [facility] Blood erythrocytes count (nu mber/volume)Ordered By: Dr. Foy on 03-26-2022 RBC (Bld) [#/Vol] 3.95 10*6/uL 4.2-5.4 [facility] Blood hemoglobin measurement (mass/volume)Ordered By: Dr. Foy on 03-26-2022 Hemoglobin (Bld) [Mass/Vol] 12.0 g/dL 12.0-15.0 [facility] Blood lymphocytes/100 leukoc ytesOrdered By: Dr. Foy on 03-26-2022 Lymphocytes/100 WBC (Bld) 21.1 % 19-41 [facility] Blood monocytes/100 leukocyt esOrdered By: Dr. Foy on 03-26-2022 Monocytes/100 WBC (Bld) 5.1 % 0-10 [facility] Blood platelet mean volumeOr dered By: Dr. Foy on 03-26-2022 Platelet mean volume (Bld) [Entitic vol] 8.9 fL 6.2-12.0 [facility] Cervical or vagninal specime n microscopic examination by cytology stain (reported asOrdered By: Dr. Foy on 03-26-2022 Cytology report Cyto stain Doc (Cvx/Vag) Comment . [facility] Comment on above: The Pap smear is a s creening test designed to aid in thedetection of premalignant and malignant conditions of theuterine cervix. It is not a diagnostic procedure andshould not be used as the sole means of detecting cervicalcancer. Both false-positive and false-negative reports dooccur. Determination of erythrocyte mean corpuscular volume (MCV)Ordered By: Dr. Foy on 03-26-2022 MCV (RBC) [Entitic vol] 90.6 fL 81-99 [facility] HIV 1 and HIV-2 antibody ass ay with HIV-1 p24 antigen detectionOrdered By: Dr. Foy on 03-26-2022 HIV 1+2 Ab+HIV1 p24 Ag IA Ql Non-Reactive Nonreactive [facility] Hematocrit Auto (Bld) [Volum e fraction]Ordered By: Dr. Foy on 03-26-2022 Hematocrit (Bld) [Volume fraction] 35.8 % 37-47 [facility] Laboratory - CytologyOrdered By: Dr. Foy on 03-26-2022 Pollution Control Engineer Cyto stain Nom (Cvx/Vag) [ID] Comment . [facility] Comment on above: Roman Hernandez totavelinaologist (ASCP) Laboratory - Hematology and Cell countsOrdered By: Dr. Foy on 03-26-2022 Erythrocyte distribution width (RBC) [Entitic vol] 40.1 fL 35.1-43.9 [facility] Erythrocyte distribution width (RBC) [Ratio] 12.0 % 11.6-14.6 [facility] Immature granulocytes/100 WBC (Bld) 1.500 % 0.0-0.9 [facility] Comment on above: IG% - Immature Granu locytes (promyelocytes, myelocytes and metamyelocytes) > 1% indicates that a LEFT SHIFT is Present. MCH (RBC) [Entitic mass] 30.4 pg 27.0-32.0 [facility] Nucleated RBC/100 WBC (Bld) [Ratio] 0 % 0-5 [facility] Laboratory - Miscellaneous t estsOrdered By: Dr. Foy on 03-26-2022 Service comment (Unsp spec) [Interp] Comment . [facility] Comment on above: This liquid based Th inPrep(R) pap test was screened withthe use of an image guided system. Service comment (Unsp spec) [Interp] . . [facility] Auto (RBC) [Mass/Vol]Or dered By: Dr. Foy on 03-26-2022 MCHC (RBC) [Mass/Vol] 33.5 g/dL - [facility] No Panel InformationOrdered By: Dr. Foy on 03-26-2022 Hepatitis B Surface Antigen Non-Reactive Nonreactive [facility] Hepatitis C Antibody Non-Reactive Nonreactive [facility] Comment on above: Non Reactive: < 0.8 Equivocal: >/= 0.8 to < 1.0 Reactive: >/= 1.0The CDC recommends that a reactive/equivocal HCV antibody result be followed up by the HCV Nucleic Acid Amplificationtest (353279) Human Papillomavirus Screen Comment . [facility] Comment on above: The HPV DNA reflex c riteria were not met with this specimenresult therefore, no HPV testing was performed.Performed at: - [facility] [address] [place], [place] [id number] Director: Rehan Mcdonald MD, Phone: [phone] at: - [facility] [id number] Director: Katerin Jensen MD, Phone: [phone] Pathology report final diagnosis Narrative Comment . [facility] Comment on above: NEGATIVE FOR INTRAEP ITHELIAL LESION OR MALIGNANCY. Rubella IgG Antibody Reactive Nonreactive [facility] Comment on above: Antibody Results Int erpretation of Immune Status Non Reactive Presumed Non-Immune Equivocal Equivocal Reactive Presumed Immune Platelets bldOrdered By: Dr. Foy on 03-26-2022 Platelets (Bld) [#/Vol] 317 10*3/uL 150-450 [facility] Serum Treponema species anti body detectionOrdered By: Dr. Foy on 03-26-2022 Treponema sp Ab Ql (S) Non-Reactive [facility] Serum Varicella zoster virus IgG antibody assay by immunoassay (units/volume)Ordered By: Dr. Foy on 03-26-2022 VZV IgG IA Qn (S) 1974 index Immune >165 [facility] Comment on above: Negative <135 Equivo haresh 135 - 165 Positive >165A positive result generally indicates exposure to thepathogen or administration of specific immunoglobulins,but it is not indication of active infection or stageof disease.Performed at: [employer] [id number] Director: Cosmo Caicedo PhD, Phone: [phone] URINE CULTURE [CCL]on 2021 Bacteria identified Cx Nom (U) URCUL See Results Below See Below CULTURE, URINE ESCHERICHIA COLI >=100,000 CFU/ml Escherichia coli CLSI breakpoints for therapy of uncomplicated UTIs due to E. coli, K. pneumoniae ORGANISM: ESCHERICHIA COLI ANTIBIOTIC EMILIE DILUTN EMILIE INTERP Ampicillin 4 Susceptible Ampicillin/Sulbact 4 Susceptible Cefazolin <=4 Susceptible Cefepime <=1 Susceptible Ceftriaxone <=1 Susceptible Ciprofloxacin <=0.25 Susceptible Ertapenem <=0.5 Susceptible Gentamicin <=1 Susceptible Meropenem <=0.25 Susceptible Nitrofurantoin <=16 Susceptible Piperacillin/Tazobac <=4 Susceptible Tobramycin <=1 Susceptible Trimeth sulfameth <=20 Susceptible This test was developed and its performance characteristics determined by the [facility] [place] ([facility] It has not been cleared or approved by the FDA. -[facility] is regulated under CLIA as qualified to perform high-complexity testing. This test is used for clinical purposes. It should not be regarded as investigational or for research. SOURCE: URINE [facility] [address] [place] [address] Xander Delgado III, M.D. [id number] Normal [facility] Comment on above: Performed By: #### [id number] #### [facility],[address] [place] [id number] Absolute lymphocyte countOrd ered By: Dr. Erickson on 02-27-2022 Lymphocytes Auto (Unsp spec) [#/Vol] 2.06 10*3/uL 0.83-4.51 [facility] Basophil percentageOrdered B y: Dr. Erickson on 02-27-2022 Basophils/100 WBC (Bld) 0.7 % 0-1 [facility] Eosinophils/100 WBC (Bld) 0.8 % 0-5 [facility] Neutrophils (Bld) [#/Vol] 4.7 10*3/uL 2.0-7.7 [facility] Neutrophils/100 WBC (Bld) 63.4 % 47-70 [facility] WBC (Bld) [#/Vol] 7.4 10*3/uL 4.4-11.0 [facility] Blood erythrocytes count (nu mber/volume)Ordered By: Dr. Erickson on 02-27-2022 RBC (Bld) [#/Vol] 4.17 10*6/uL 4.2-5.4 [facility] Blood hemoglobin measurement (mass/volume)Ordered By: Dr. Erickson on 02-27-2022 Hemoglobin (Bld) [Mass/Vol] 12.4 g/dL 12.0-15.0 [facility] Blood lymphocytes/100 leukoc ytesOrdered By: Dr. Erickson on 02-27-2022 Lymphocytes/100 WBC (Bld) 27.9 % 19-41 [facility] Blood monocytes/100 leukocyt esOrdered By: Dr. Erickson on 02-27-2022 Monocytes/100 WBC (Bld) 6.4 % 0-10 [facility] Blood platelet mean volumeOr dered By: Dr. Erickson on 02-27-2022 Platelet mean volume (Bld) [Entitic vol] 8.9 fL 6.2-12.0 [facility] Determination of erythrocyte mean corpuscular volume (MCV)Ordered By: Dr. Erickson on 02-27-2022 MCV (RBC) [Entitic vol] 90.9 fL 81-99 [facility] Hematocrit Auto (Bld) [Volum e fraction]Ordered By: Dr. Erickson on 02-27-2022 Hematocrit (Bld) [Volume fraction] 37.9 % 37-47 [facility] Laboratory - Chemistry and C hemistry - challengeOrdered By: Dr. Erickson on 02-27-2022 Cobalamin (Vitamin B12) [Mass/Vol] 630 pg/mL 211-911 [facility] Free T4 [Mass/Vol] 1.14 ng/dL 0.76-1.46 [facility] Laboratory - Hematology and Cell countsOrdered By: Dr. Erickson on 02-27-2022 Erythrocyte distribution width (RBC) [Entitic vol] 41.2 fL 35.1-43.9 [facility] Erythrocyte distribution width (RBC) [Ratio] 12.5 % 11.6-14.6 [facility] Immature granulocytes/100 WBC (Bld) 0.800 % 0.0-0.9 [facility] Comment on above: IG% - Immature Granu locytes (promyelocytes, myelocytes and metamyelocytes) > 1% indicates that a LEFT SHIFT is Present. MCH (RBC) [Entitic mass] 29.7 pg 27.0-32.0 [facility] Nucleated RBC/100 WBC (Bld) [Ratio] 0 % 0-5 [facility] MCHC Auto (RBC) [Mass/Vol]Or dered By: Dr. Erickson on 02-27-2022 MCHC (RBC) [Mass/Vol] 32.7 g/dL 32-36 [facility] No Panel InformationOrdered By: Dr. Erickson on 02-27-2022 Thyroid Stimulating Hormone (TSH) 2.86 uIU/mL 0.358-3.74 [facility] Vitamin D 25-Hydroxy 93.5 ng/mL [facility] Comment on above: Vitamin D 25(OH) Sta tus Range Deficiency <20 ng/mL (50nmol/L) Insufficiency 20 - 30 ng/mL (50 - 75 nmol/L) Sufficiency 30 - 100 ng/mL (75 - 250 nmol/L) Toxicity >100 ng/mL (>250 nmol/L) Platelets bldOrdered By: Dr. Erickson on 02-27-2022 Platelets (Bld) [#/Vol] 333 10*3/uL 150-450 [facility] Serum or plasma ferritin modesta surement (mass/volume)Ordered By: Dr. Erickson on 02-27-2022 Ferritin [Mass/Vol] 137 ng/mL 8-252 [facility] CBC (INCLUDES DIFF/PLT)on Basophils (Bld) [#/Vol] 0.062 10*3/uL Normal 0-200 [facility] Comment on above: Performed By: #### 6 399 #### [facility] [address], [address] [place] [address] Software Tester: Rudolph Pollock MD Basophils/100 WBC (Bld) 0.8 % Normal [facility] Comment on above: Performed By: #### 6 399 #### [facility]-[address], [address] [place] [address] Software Tester: Rudolph Pollock MD Eosinophils (Bld) [#/Vol] 0.1 10*3/uL Normal 15-500 [facility] Comment on above: Performed By: #### 6 399 #### [facility] [address] Software Tester: Rudolph Pollock MD Eosinophils/100 WBC (Bld) 1.3 % Normal [facility] Comment on above: Performed By: #### 6 399 #### [facility] [address] Software Tester: Rudolph Pollock MD Erythrocyte distribution width (RBC) [Ratio] 12.9 % Normal 11.0-15.0 [facility] Comment on above: Performed By: #### 6 399 #### [facility] [address] Software Tester: Rudolph Pollock MD Hematocrit (Bld) [Volume fraction] 36.8 % Normal 35.0-45.0 [facility] Comment on above: Performed By: #### 6 399 #### [facility] [address] [place] [address] Software Tester: Rudolph Pollock MD Hemoglobin (Bld) [Mass/Vol] 11.9 g/dL Normal 11.7-15.5 [facility] Comment on above: Performed By: #### 6 399 #### [facility] [address] [place] [address] Software Tester: Rudolph Pollock MD Lymphocytes (Bld) [#/Vol] 2.017 10*3/uL Normal 850-3900 [facility] Comment on above: Performed By: #### 6 399 #### [facility], [address] [place] [address] Software Tester: Rudolph Pollock MD Lymphocytes/100 WBC (Bld) 26.2 % Normal [facility] Comment on above: Performed By: #### 6 399 #### [facility], [address] [place] [address] Software Tester: Rudolph Pollock MD MCH (RBC) [Entitic mass] 29.3 pg Normal 27.0-33.0 [facility] Comment on above: Performed By: #### 6 399 #### [facility] [address] Software Tester: Rudolph Pollock MD MCHC (RBC) [Mass/Vol] 32.3 g/dL Normal 32.0-36.0 [facility] Comment on above: Performed By: #### 6 399 #### [facility], [address] [place] [address] Software Tester: Rudolph Pollock MD MCV (RBC) [Entitic vol] 90.6 fL Normal 80.0-100.0 [facility] Comment on above: Performed By: #### 6 399 #### [facility] [address] Software Tester: Rudolph Pollock MD Monocytes (Bld) [#/Vol] 0.47 10*3/uL Normal 200-950 [facility] Comment on above: Performed By: #### 6 399 #### [facility] [address] [place] [address] Software Tester: Rudolph Pollock MD Monocytes/100 WBC (Bld) 6.1 % Normal [facility] Comment on above: Performed By: #### 6 399 #### [facility] [address] [address] [place] [address] Software Tester: Rudolph Pollock MD Neutrophils (Bld) [#/Vol] 5.051 10*3/uL Normal 3014-0300 [facility] Comment on above: Performed By: #### 6 399 #### [facility] [address], [address] [place] [address] Software Tester: Rudolph Pollock MD Neutrophils/100 WBC (Bld) 65.6 % Normal [facility] Comment on above: Performed By: #### 6 399 #### [facility] [address], [address] [place] [address] Software Tester: Rudolph Pollock MD Platelet mean volume (Bld) [Entitic vol] 9.3 fL Normal 7.5-12.5 [facility] Comment on above: Performed By: #### 6 399 #### [facility] [address] [place] [address] Software Tester: Rudolph Pollock MD Platelets (Bld) [#/Vol] 326 10*3/uL Normal 140-400 [facility] Comment on above: Performed By: #### 6 399 #### [facility] [address], [address] [place] [address] Software Tester: Rudolph Pollock MD RBC (Bld) [#/Vol] 4.06 10*6/uL Normal 3.80-5.10 [facility] Comment on above: Performed By: #### 6 399 #### [facility] [address], [address] [place] [address] Software Tester: Rudolph Pollock MD WBC (Bld) [#/Vol] 7.7 10*3/uL Normal 3.8-10.8 [facility] Comment on above: Performed By: #### 6 399 #### [facility] [address], [address] [place] [address] Software Tester: Rudolph Pollock MD Lab Report: Miscellaneous La b Procedureon 04-02-2017 GE use only - for [employer] import when terms are not otherwise specified . Invalid Interpretation Code [facility] Lab Report: CT/NG [facility] BY PCR on 04-01-2017 Chlamydia trachomatis DNA [Presence] in Urine by Probe and target amplification method Negative Invalid Interpretation Code Negative [facility] Neisseria gonorrhoeae presence Negative Invalid Interpretation Code Negative [facility] Culture, urine Bacteria identified Cx Nom (U) Presumptive Lactobacillus sp. [facility] Work Phone: Vital Signs Date Time Vital Sign Value Performing Clinician Facility 06-02-2024 08:26-0500 Body temperature 98.2 [degF] Myriam Qasim PATIENT CLERICAL ASSISTANT.SPOOL WORKER Work Phone: [facility] 06-02-2024 08:26-0500 Body weight 49.2 kg [facility] CL[facility]ICAL [facility]ISTANT.SPOOL WORKER Work Phone: [facility] 06-02-2024 08:26-0500 Diastolic blood pressure 62 mm[Hg] [facility]IENT CLERICAL ASSISTANT.SPOOL WORKER Work Phone: [facility] 06-02-2024 08:26-0500 Heart rate 98 /min [facility] PATIENT CLERICAL ASSISTANT.SPOOL WORKER Work Phone: [facility] 06-02-2024 08:26-0500 Respiratory rate 16 /min [facility] PATIENT CLERICAL ASSISTANT.SPOOL WORKER Work Phone: [facility] 06-02-2024 08:26-0500 SaO2% (BldA) [Mass fraction] 99 % [facility] PATIENT CLERICAL ASSISTANT.SPOOL WORKER Work Phone: [facility] 06-02-2024 08:26-0500 Systolic blood pressure 98 mm[Hg] [facility] PATIENT CLERICAL ASSISTANT.SPOOL WORKER Work Phone: [facility] 08-12-2023 15:08-0400 Body height 149.9 cm Matt Cox DO Work Phone: [facility] 08-12-2023 15:08-0400 Body mass index (BMI) [Ratio] 21.81 kg/m2 Matt Cox DO Work Phone: [facility] 08-12-2023 15:08-0400 Body weight 48.99 kg Matt Cox DO Work Phone: [facility] 10-24-2022 07:33-0400 Body temperature 98.5 [degF] PA-C Vic [place] PA Work Phone: [facility] 10-24-2022 07:33-0400 Diastolic blood pressure 56 mm[Hg] PA-C Vic [place] PA Work Phone: [facility] 10-24-2022 07:33-0400 Heart rate 73 /min PA-C Vic [place] PA Work Phone: [facility] 10-24-2022 07:33-0400 Respiratory rate 16 /min PA-C Vic [place] PA Work Phone: [facility] 10-24-2022 07:33-0400 SaO2% (BldA) [Mass fraction] 99 % PA-C Vic [place] PA Work Phone: [facility] 10-24-2022 07:33-0400 Systolic blood pressure 97 mm[Hg] PA-C Vic [place] PA Work Phone: [facility] 10-23-2022 05:22-0400 Body height 149.86 cm PA-C Vic [place] PA Work Phone: [facility] 10-23-2022 05:22-0400 Body mass index (BMI) [Ratio] 29.2 kg/m2 PA-C Vic [place] PA Work Phone: [facility] 10-23-2022 05:22-0400 Body weight 65.7 kg PA-C Vic [place] PA Work Phone: [facility] 10-21-2022 13:17-0400 Body weight 65.31 kg PA-C Vic [place] PA Work Phone: [facility] 10-21-2022 13:17-0400 Diastolic blood pressure 62 mm[Hg] PA-C Vic [place] PA Work Phone: [facility] 10-21-2022 13:17-0400 Heart rate 91 /min PA-C Vic [place] PA Work Phone: [facility] 10-21-2022 13:17-0400 Respiratory rate 22 /min PA-C Vic [employer] PA Work Phone: [facility] 10-21-2022 13:17-0400 Systolic blood pressure 88 mm[Hg] PA-C Vic [employer] PA Work Phone: [facility] 06-09-2022 07:03-0400 Diastolic blood pressure 66 mm[Hg] PA-C Vic [employer] PA Work Phone: [facility] 06-09-2022 07:03-0400 Respiratory rate 16 /min PA-C Vic [employer] PA Work Phone: [facility] 06-09-2022 07:03-0400 Systolic blood pressure 106 mm[Hg] PA-C Vic [employer] PA Work Phone: [facility] 06-09-2022 06:04-0400 Body height 149.86 cm PA-C [employer] PA Work Phone: [facility] 06-09-2022 06:04-0400 Body mass index (BMI) [Ratio] 11.7 kg/m2 PA-C [employer] PA Work Phone: [facility] 06-09-2022 06:04-0400 Body temperature 96.5 [degF] PA-C Vic [employer] PA Work Phone: [facility] 06-09-2022 06:04-0400 Body weight 26.47 kg PA-C Vic [employer] PA Work Phone: [facility] 06-09-2022 06:04-0400 Heart rate 111 /min PA-C Vic [employer] PA Work Phone: [facility] 06-09-2022 06:04-0400 SaO2% (BldA) [Mass fraction] 100 % PA-C Vic [employer] PA Work Phone: [facility] 02-27-2022 09:52-0500 Body height 149.86 cm PA-C [employer] PA Work Phone: [facility] Work Phone: 02-27-2022 09:52-0500 Body mass index (BMI) [Ratio] 24.3 kg/m2 PA-C Vic [employer] PA Work Phone: [facility] 02-27-2022 09:52-0500 Body temperature 97.2 [degF] PA-C Vic [employer] PA Work Phone: [facility] 02-27-2022 09:52-0500 Body weight 54.54 kg PA-C Vic [employer] PA Work Phone: [facility] 02-27-2022 09:52-0500 Diastolic blood pressure 66 mm[Hg] PA-C Vic [employer] PA Work Phone: [facility] 02-27-2022 09:52-0500 Heart rate 87 /min PA-C Vic [employer] PA Work Phone: [facility] 02-27-2022 09:52-0500 Respiratory rate 16 /min PA-C [employer] PA Work Phone: [facility] 02-27-2022 09:52-0500 SaO2% (BldA) [Mass fraction] 98 % PA-C Vic [employer] PA Work Phone: [facility] 02-27-2022 09:52-0500 Systolic blood pressure 99 mm[Hg] PA-C [employer] PA Work Phone: [facility] Encounters Encounter Date Encounter Type Care Provider Facility Start: 06-02-2024 End: 06-02-2024 ambulatory Facility:[facility] Start: 06-02-2024 End: 06-02-2024 Office outpatient visit 25 minutes Myriam Tripp APRN.SPOOL WORKER Work Phone: [facility] Comment on above: Breast pain, right ( Primary Dx) Start: 04-28-2024 End: 04-28-2024 ambulatory [facility] Facility:[facility] Start: 04-25-2024 End: 04-25-2024 ambulatory Vic CHURCHILL Facility:[facility] Start: 09-23-2023 End: 09-23-2023 Office outpatient visit 15 minutes Matt Hussain Kenny DO Work Phone: [facility] Comment on above: Irritable bowel synd greg with both constipation and diarrhea (Primary Dx) Start: 08-12-2023 End: 08-12-2023 Office outpatient new 45 minutes Matt Hussain Zavalaoliva DO Work Phone: [facility] Comment on above: NCGS (non-celiac glu ten sensitivity) (Primary Dx); Irritable bowel syndrome with both constipation and diarrhea; Asmita's thyroiditis Start: 12-04-2022 End: 12-04-2022 ambulatory KERLINE-Chris Vernon PA Work Phone: [facility] Work Phone: Start: 12-04-2022 End: 12-04-2022 Patient encounter procedure PA-Chris Williamson [place] PA Work Phone: [facility] [place] [employer] Start: 10-23-2022 End: 10-24-2022 Evaluation and management of inpatient PA-C Vic Vernon PA Work Phone: [facility] Work Phone: Start: 10-21-2022 End: 10-21-2022 Patient encounter procedure PA-C Vic Vernon PA Work Phone: [facility] Work Phone: Start: 10-14-2022 End: 10-14-2022 Patient encounter procedure PA-C Vic Vernon PA Work Phone: [facility] [place] [employer] Start: 10-07-2022 End: 10-07-2022 ambulatory [facility] Work Phone: Start: 10-07-2022 End: 10-07-2022 [facility] [place] [facility] Start: 09-18-2022 End: 09-18-2022 ambulatory [facility] Start: 09-15-2022 End: 09-15-2022 ambulatory [facility] Start: 09-11-2022 End: 09-11-2022 ambulatory [facility] Work Phone: Start: 09-11-2022 End: 09-11-2022 [facility] [place] [facility] Start: 09-02-2022 End: 09-02-2022 Non-patient / Non-visit CELENA CHURCHILL Work Phone: [facility] Work Phone: Start: 09-02-2022 End: 09-02-2022 Patient encounter procedure [facility]Neurology Start: 08-28-2022 End: 08-28-2022 ambulatory [facility] Work Phone: Start: 08-28-2022 End: 08-28-2022 [facility] [place] [facility] Start: 07-31-2022 End: 07-31-2022 ambulatory [facility] Work Phone: Start: 07-31-2022 End: 07-31-2022 [facility] [place] [facility] Start: 06-26-2022 End: 06-26-2022 ambulatory [facility] Work Phone: Start: 06-26-2022 End: 06-26-2022 Patient encounter procedure [facility] [place] [employer] Start: 06-09-2022 End: 06-09-2022 Emergency department patient visit CELENA CHURCHILL Work Phone: [facility] Start: 04-27-2022 End: 04-27-2022 Patient encounter procedure CELENA CHURCHILL Work Phone: [facility] [place] [employer] Start: 03-26-2022 End: 03-26-2022 ambulatory PA-C Vic [employer] PA Work Phone: [facility] Work Phone: Start: 03-26-2022 End: 03-26-2022 Patient encounter procedure PA-C Vic [employer] PA Work Phone: [facility] [place] [employer] Start: 03-03-2022 End: 03-03-2022 ambulatory [facility] Start: 02-27-2022 End: 02-27-2022 ambulatory PA-C Vic [place] PA Work Phone: [facility] Work Phone: Start: 02-27-2022 End: 02-27-2022 Patient encounter procedure PA-C Vic [place] PA Work Phone: [facility] Endocrinology Procedures Date Procedure Procedure Detail Performing Clinician Start: 10-07-2022 Group B Streptococcu s Culture Urine culture PA-Chris Williamson [place] PA Work Phone: Urine culture PA-C Vic [place] PA Work Phone: Plan of Treatment Date Care Activity Detail Author Start: 02-27-2046 Zoster Vaccines (1 of 2) Zoste r Vaccines (1 of 2) [facility] Start: 12-27-2023 End: 12-27-2023 Patient encounter procedure 12/27/2023 1:30 PM EDT Office Visit [facility] [address] [place] [id number] Matt Cox DO [address] [facility] [place] [address] [facility] Start: 11-28-2023 Covid-19 Vaccine ( season) Covid-19 Vaccine ( season) [facility] Start: 11-28-2023 Influenza vaccination [facility] Start: 09-23-2023 End: 09-23-2023 Patient encounter procedure 09/23/2023 1:00 PM EDT Office Visit [facility] [address] [place] [id number] Matt Cox DO [address] [facility] [place] [address] [facility] Start: 08-12-2023 End: 08-11-2024 Calprotectin [Mass/mass] in Stool Calprotectin, Fecal Lab Routine NCGS (non-celiac gluten sensitivity) Irritable bowel syndrome with both constipation and diarrhea Asmita's thyroiditis Expected: 08/12/2023 (Approximate), Expires: 08/11/2024 [facility] Work Phone: Comment on above: Expected: 08/12/2023 (Approximate), Expires: 08/11/2024 Start: 08-12-2023 End: 08-11-2024 CBC W Auto Differential panel - Blood CBC and Auto Differential Lab Routine NCGS (non-celiac gluten sensitivity) Irritable bowel syndrome with both constipation and diarrhea Asmita's thyroiditis Expected: 08/12/2023 (Approximate), Expires: 08/11/2024 [facility] Work Phone: Comment on above: Expected: 08/12/2023 (Approximate), Expires: 08/11/2024 Start: 08-12-2023 End: 08-11-2024 Celiac Panel Celiac Panel Lab Routine NCGS (non-celiac gluten sensitivity) Irritable bowel syndrome with both constipation and diarrhea Asmita's thyroiditis Expected: 08/12/2023 (Approximate), Expires: 08/11/2024 [facility] Service Area Work Phone: Comment on above: Expected: 08/12/2023 (Approximate), Expires: 08/11/2024 Start: 08-12-2023 End: 08-11-2024 Comprehensive metabolic 2000 panel - Serum or Plasma Comprehensive Metabolic Panel Lab Routine NCGS (non-celiac gluten sensitivity) Irritable bowel syndrome with both constipation and diarrhea Asmita's thyroiditis Expected: 08/12/2023 (Approximate), Expires: 08/11/2024 [facility] Work Phone: Comment on above: Expected: 08/12/2023 (Approximate), Expires: 08/11/2024 Start: 08-12-2023 End: 08-11-2024 Elastase.pancreatic [Mass/mass] in Stool Pancreatic Elastase, Fecal Lab Routine NCGS (non-celiac gluten sensitivity) Irritable bowel syndrome with both constipation and diarrhea Asmita's thyroiditis Expected: 08/12/2023 (Approximate), Expires: 08/11/2024 [facility] Work Phone: Comment on above: Expected: 08/12/2023 (Approximate), Expires: 08/11/2024 Start: 11-27-2022 COVID-19 Vaccine () COVID-19 Vaccine () [facility] Start: 10-24-2022 Patient discharge [facility] Start: 10-24-2022 Application of abdom inal corset [facility] Start: 10-23-2022 Application of abdom inal corset [facility] Start: 10-23-2022 Introduction of urin zaida catheter [facility] Start: 10-23-2022 Administration of medication [facility] Start: 10-23-2022 Ambulation therapy management [facility] Start: 10-23-2022 Application of device W [facility] Start: 10-23-2022 End: 10-23-2022 Application of intermittent pneumatic compression device [facility] Start: 10-23-2022 Assessment of risk o f venous thromboembolism [facility] Start: 10-23-2022 Catheterization of vein [facility] Start: 10-23-2022 Deep breathing and coughing exercises [facility] Start: 10-23-2022 Exercises [facility] Start: 07-28-2023 Incentive spirometry [facility] Start: 10-23-2022 Measuring intake and output [facility] Start: 10-23-2022 Notification of physician [facility] Start: 10-23-2022 Procedure discontinued [facility] Start: 10-23-2022 Provision of activit y privileges [facility] Start: 10-23-2022 Vital signs measurements [facility] Start: 10-23-2022 Wound care [facility] Start: 10-23-2022 [facility] Start: 10-23-2022 section Primary C Sec tion (Not Applicable) [facility] Start: 10-23-2022 Notification of physician [facility] Start: 10-23-2022 [facility] Start: 10-23-2022 Admission procedure [facility] Start: 10-23-2022 Application of intermittent pneumatic compression device [facility] Start: 10-23-2022 External monit or surveillance [facility] Start: 10-23-2022 Preoperative care [facility] Start: 10-23-2022 Verification routine [facility] Start: 10-23-2022 [facility] Start: 06-09-2022 [facility] Start: 04-27-2022 Procedure [facility] Start: 02-27-2022 Patient referral [facility] Work Phone: Start: 02-27-2018 DTaP/Tdap/Td Vaccine s (1 - Tdap) DTaP/Tdap/Td Vaccines (1 - Tdap) [facility] Start: 02-27-2017 Screening for malign ant neoplasm of cervix [facility] Start: 02-27-2015 Hepatitis B Vaccine (1 of 3 - 19+ 3-dose series) Hepatitis B Vaccine (1 of 3 - 19+ 3-dose series) [facility] Start: 02-27-2015 Hepatitis B Vaccines (1 of 3 - 19+ 3-dose series) Hepatitis B Vaccines (1 of 3 - 19+ 3-dose series) [facility] Start: 02-27-2015 Pneumococcal vaccination Pneum ococcal Vaccine (1 of 2 - PCV) [facility] Start: 02-27-2015 Urine microalbumin profile DTaP,Tdap,Td Vaccine (1 - Tdap) [facility] Start: 02-27-2014 Anxiety Screening Anxiety Screening [facility] Start: 02-27-2014 Depression Screening Depression Scre masoud [facility] Start: 02-27-2014 Hepatitis C screening Hepatitis C Sc reening [facility] Start: 02-27-2014 HIV screening HIV Screening [facility] Start: 02-27-2009 Varicella vaccination Varicell a Vaccines (1 of 2 - 13+ 2-dose series) [facility] Start: 02-27-1997 MMR Vaccines (1 of 1 - Standard series) MMR Vaccines (1 of 1 - Standard series) [facility] Start: 1996 HIV screening HIV Screening [facility] Start: 1996 Lipid panel Lipid Panel [facility] Start: 1996 Thyroid stimulating hormone measurement TSH Level [facility] Start: 1996 Yearly Adult Physical Yearly Adult P [facility] Patient Education [facility] Work Phone: Patient referral [facility] Work Phone: T4 free measurement [facility] Work Phone: T4 free measurement [facility] Thyroid stimulating hormone measurement [facility] Work Phone: Thyroid stimulating hormone measurement [facility] Payers Date Payer Category Payer Self-pay [id number] 2022 Unknown [id number] 2022 Medicaid [facility] CAI [id number] 2021 Unknown [id number] 2014 Medicaid [id number] 1996 Unknown [id number] 1996 Unknown [id number] 1996 Unknown [id number] Unknown ANTHEM [id number] Unknown [facility] N [id number] Unknown [id number] Unknown [id number] Social History Date Type Detail Facility Start: 02-27-2022 End: 10-23-2022 Tobacco smoking status NHIS Unknown if ever smoked [facility] Start: 1995 Sex Assigned At Female [facility] [place] Start: 08-12-2023 Tobacco smoking status NHIS Never smoked tobacco [facility] Work Phone: Start: 08-12-2023 End: 06-02-2024 Tobacco use and exposure Smokeless tobacco non-user [facility] Work Phone: Start: 08-12-2023 End: 09-23-2023 Alcoholic beverage intake Ex-drinker (finding) [facility] Work Phone: Start: 1995 Sex assigned at Not on file [facility] Work Phone: Start: 06-17-2023 Gender identity Identifies as female gender (finding) [facility] Start: 06-17-2023 Sexual orientation Heterosexual (finding) [facility] Work Phone: Start: 08-12-2023 End: 06-02-2024 History of Social function [facility] Work Phone: Start: 08-12-2023 End: 06-02-2024 Tobacco use panel [facility] Work Phone: Start: 09-13-2023 End: 09-23-2023 Exposure to SARS-CoV-2 (event) Not sure [facility] Start: 11-16-2010 Tobacco smoking status NHIS Smokes tobacco daily [facility] Start: 11-16-2010 History of tobacco use Cigarette Smoker [facility] Start: 06-02-2024 Alcoholic beverage intake Current non-drinker of alcohol (finding) [facility] Goals Date Patient Goal Desired Activity /State Functional Status Date Assessment Result Facility 12-11-2013 Are you deaf, or do you have serious difficulty hearing No 12/11/2013 10:30 AM Natalee Castillo RN [facility] 12-11-2013 Are you blind, or do you have serious difficulty seeing, even when wearing glasses No 12/11/2013 10:30 AM Natalee Castillo RN [facility] 12-11-2013 Do you have serious difficulty walking or climbing stairs No 12/11/2013 10:30 AM Natalee Castillo RN [facility] 12-11-2013 Do you have difficul ty dressing or bathing No 12/11/2013 10:30 AM Natalee Castillo RN [facility] 12-11-2013 Because of a physica l, mental, or emotional condition, do you have difficulty doing errands alone such as visiting a physician's office or shopping No 12/11/2013 10:30 AM Natalee Castillo RN No [facility] Mental Status Date Assessment Result Facility 10-23-2022 Cognitive function Level Of Cons ciousness Awake;Alert;Appropriate;Fol lows Commands [facility] Work Phone: 06-09-2022 Cognitive function Level Of Cons ciousness Awake;Alert [facility] Work Phone: 12-11-2013 Because of a physica l, mental, or emotional condition, do you have serious difficulty concentrating, remembering, or making decisions No 12/11/2013 10:30 AM EDT Natalee Kern RN No [facility] Clinical Notes 03-26-2022 to 06-02-2024 Myriam rTipp APRN.SPOOL WORKER - 06/02/2024 8:51 AM ESTMatt Cox, DO - 09/23/2023 1:00 PM EDTMatt Cox, DO - 08/12/2023 2:45 PM EDT Note Date & Type Note Facility 06-02-2024 Note HNO ID: [id number] Author: MYRIAM TRIPP APRN.SPOOL WORKER Service: ? Author Type: Nurse Practitioner Type: Progress Notes Filed: 06/02/2024 09:18 Note Text: Subjective HPI Nontoxic-appearing 29-year-old female currently breast-feeding 1 and nckc-vmbv-vzy child presents today for possible mastitis. States increased right breast pain over the last 4 days. States additionally family had does not and she is currently recovering from gastroenteritis. States did notice some swelling under her right breast yesterday. Some streaking as well. Has not used any OTC medications. Has been afebrile for the last 24 hours. no breast discharge. Past medical history prescription medications allergies reviewed. .Patient presents with: breast pain, R PAST MEDICAL HISTORY Diagnosis Date Biliary dyskinesia 12/05/13 NEGATIVE MEDICAL HISTORY PAST SURGICAL HISTORY Procedure Laterality Date LAPAROSCOPY SURG CHOLECYSTECTOMY 12/05/13 MYRINGOTOMY ASPIRAND/EUSTACHIAN TUBE NFLTJ ANES 1997 Myringotomy/tubes ALLERGIES [place] [Hydrocodone-Acetaminophen] MEDICATIONS TIROSINT 112 mcg cap Take 1 capsule by mouth once daily. cephALEXin (KEFLEX) 500 mg capsule Take 1 capsule by mouth three times a day for 5 days. Levonorgestrel-Ethinyl Estrad (LEVORA-28) 0.15-30 mg-mcg per tablet Take 1 tablet by mouth once daily. oxyCODONE-acetaminophen (PERCOCET) 5-325 mg tablet Take 1 tablet by mouth every 4 hours as needed for Pain. BIOTIN ORAL Take by mouth. LORATADINE (CLARITIN ORAL) Take by mouth. FAMILY HISTORY Problem Relation Age of Onset Hypertension Maternal Grandfather Hypertension Father Asthma Father Alzheimer's Disease Paternal Grandmother other (Parkinson's Disease [Other]) Paternal Grandmother Asthma Paternal Grandfather Hypertension Paternal Grandfather Social History Tobacco Use Smoking status: Every Day Current packs/day: 0.50 Average packs/day: 0.5 packs/day for 13.5 years (6.8 ttl pk-yrs) Types: Cigarettes Start date: 11/16/2010 Smokeless tobacco: Never Substance Use Topics Alcohol use: No Drug use: No BP 98/62 Pulse 98 Temp 36.8 ?C (98.2 ?F) Resp 16 Wt 49.2 kg (108 lb 7.5 oz) LMP 05/07/2024 SpO2 99% Yes Review of Systems Constitutional: Positive for malaise/fatigue. Negative for chills and fever. HENT: Negative for congestion, ear discharge, ear pain, sinus pain and sore throat. Eyes: Negative for blurred vision, pain, discharge and redness. Respiratory: Negative for cough, hemoptysis, sputum production, shortness of breath, wheezing and stridor. Cardiovascular: Negative for chest pain. Gastrointestinal: Negative for abdominal pain, diarrhea, nausea and vomiting. Musculoskeletal: Positive for myalgias. Skin: Negative for itching and rash. Neurological: Negative for dizziness and headaches. Objective Physical Exam Exam conducted with a aws consultant present. Constitutional: General: She is not in acute distress. Appearance: She is not diaphoretic. HENT: Head: Normocephalic. Jaw: No trismus, tenderness, swelling or pain on movement. Mouth/Throat: Mouth: Mucous membranes are moist. Pharynx: Oropharynx is clear. Uvula midline. No pharyngeal swelling, oropharyngeal exudate, posterior oropharyngeal erythema or uvula swelling. Eyes: Conjunctiva/sclera: Conjunctivae normal. Pupils: Pupils are equal, round, and reactive to light. Cardiovascular: Rate and Rhythm: Normal rate and regular rhythm. Heart sounds: Normal heart sounds. Pulmonary: Effort: Pulmonary effort is normal. No tachypnea, accessory muscle usage or respiratory distress. Breath sounds: Normal breath sounds. No stridor. No wheezing, rhonchi or rales. Chest: Comments: Mild discomfort with palpation highlighted area. Mild edema noted. No erythema. No streaking. No adenopathy. No drainage or discharge. Abdominal: General: There is no distension. Palpations: Abdomen is soft. Tenderness: There is no abdominal tenderness. There is no guarding or rebound. Musculoskeletal: Cervical back: Normal range of motion and neck supple. No edema, erythema, rigidity or tenderness. No pain with movement. Normal range of motion. Lymphadenopathy: Cervical: No cervical adenopathy. Skin: General: Skin is warm and dry. Neurological: Mental Status: She is alert and oriented to person, place, and time. ASSESSMENT/PLAN: 1. Breast pain, right - ICD9: 611.71, ICD10: N64.4 Diagnosed with right wrist pain. Suspicious of early mastitis. Placed on Keflex. Patient was educated on supportive therapies. Patient will follow up with primary care provider 3 to 5 days reevaluation. Red flags discussed patient was instructed to immediately proceed to emergency room for any new, worsening, or symptoms lasting longer than anticipated. The patient's clinical presentation is otherwise unremarkable at this time. Based on exam and clinical finding, the patient is stable for (more content not included)... [facility] 06-02-2024 History of Present illness Narrative Images from the original note were not included. Subjective HPI Nontoxic-appearing 29-year-old female currently breast-feeding 1 and kstt-[id number] child presents today for possible mastitis. States increased right breast pain over the last 4 days. States additionally family had does not and she is currently recovering from gastroenteritis. States did notice some swelling under her right breast yesterday. Some streaking as well. Has not used any OTC medications. Has been afebrile for the last 24 hours. no breast discharge. Past medical history prescription medications allergies reviewed. .Patient presents with: breast pain, R PAST MEDICAL HISTORY Diagnosis Date Biliary dyskinesia 12/05/13 NEGATIVE MEDICAL HISTORY PAST SURGICAL HISTORY Procedure Laterality Date LAPAROSCOPY SURG CHOLECYSTECTOMY 12/05/13 MYRINGOTOMY ASPIR&/EUSTACHIAN TUBE NFLTJ ANES 1997 Myringotomy/tubes ALLERGIES [place] [Hydrocodone-Acetaminophen] MEDICATIONS TIROSINT 112 mcg cap Take 1 capsule by mouth once daily. cephALEXin (KEFLEX) 500 mg capsule Take 1 capsule by mouth three times a day for 5 days. Levonorgestrel-Ethinyl Estrad (LEVORA-28) 0.15-30 mg-mcg per tablet Take 1 tablet by mouth once daily. oxyCODONE-acetaminophen (PERCOCET) 5-325 mg tablet Take 1 tablet by mouth every 4 hours as needed for Pain. BIOTIN ORAL Take by mouth. LORATADINE (CLARITIN ORAL) Take by mouth. FAMILY HISTORY Problem Relation Age of Onset Hypertension Maternal Grandfather Hypertension Father Asthma Father Alzheimer's Disease Paternal Grandmother other (Parkinson's Disease [Other]) Paternal Grandmother Asthma Paternal Grandfather Hypertension Paternal Grandfather Social History Tobacco Use Smoking status: Every Day Current packs/day: 0.50 Average packs/day: 0.5 packs/day for 13.5 years (6.8 ttl pk-yrs) Types: Cigarettes Start date: 11/16/2010 Smokeless tobacco: Never Substance Use Topics Alcohol use: No Drug use: No BP 98/62 Pulse 98 Temp 36.8 C (98.2 F) Resp 16 Wt 49.2 kg (108 lb 7.5 oz) LMP 05/07/2024 SpO2 99% Yes Review of Systems Constitutional: Positive for malaise/fatigue. Negative for chills and fever. HENT: Negative for congestion, ear discharge, ear pain, sinus pain and sore throat. Eyes: Negative for blurred vision, pain, discharge and redness. Respiratory: Negative for cough, hemoptysis, sputum production, shortness of breath, wheezing and stridor. Cardiovascular: Negative for chest pain. Gastrointestinal: Negative for abdominal pain, diarrhea, nausea and vomiting. Musculoskeletal: Positive for myalgias. Skin: Negative for itching and rash. Neurological: Negative for dizziness and headaches. Objective Physical Exam Exam conducted with a aws consultant present. Constitutional: General: She is not in acute distress. Appearance: She is not diaphoretic. HENT: Head: Normocephalic. Jaw: No trismus, tenderness, swelling or pain on movement. Mouth/Throat: Mouth: Mucous membranes are moist. Pharynx: Oropharynx is clear. Uvula midline. No pharyngeal swelling, oropharyngeal exudate, posterior oropharyngeal erythema or uvula swelling. Eyes: Conjunctiva/sclera: Conjunctivae normal. Pupils: Pupils are equal, round, and reactive to light. Cardiovascular: Rate and Rhythm: Normal rate and regular rhythm. Heart sounds: Normal heart sounds. Pulmonary: Effort: Pulmonary effort is normal. No tachypnea, accessory muscle usage or respiratory distress. Breath sounds: Normal breath sounds. No stridor. No wheezing, rhonchi or rales. Chest: Comments: Mild discomfort with palpation highlighted area. Mild edema noted. No erythema. No streaking. No adenopathy. No drainage or discharge. Abdominal: General: There is no distension. Palpations: Abdomen is soft. Tenderness: There is no abdominal tenderness. There is no guarding or rebound. Musculoskeletal: Cervical back: Normal range of motion and neck supple. No edema, erythema, rigidity or tenderness. No pain with movement. Normal range of motion. Lymphadenopathy: Cervical: No cervical adenopathy. Skin: General: Skin is warm and dry. Neurological: Mental Status: She is alert and oriented to person, place, and time. ASSESSMENT/PLAN: 1. Breast pain, right - ICD9: 611.71, ICD10: N64.4 Diagnosed with right wrist pain. Suspicious of early mastitis. Placed on Keflex. Patient was educated on supportive therapies. Patient will follow up with primary care provider 3 to 5 days reevaluation. Red flags discussed patient was instructed to immediately proceed to emergency room for any new, worsening, or symptoms lasting longer than anticipated. The patient's clinical presentation is otherwise unremarkable at this time. Based on exam and clinical finding, the patient is stable for discharge. Plan of care was discussed with patient. Patient verbalizes understanding and agrees to plan of care. This note was generated using ePatientFinder software. It may contain errors in wording, punctuation, or spelling. Myriam Tripp APRN.JOSE documented in this encounter [facility] 09-23-2023 History of Present illness Narrative Subjective Patient ID: Medhat Go is a 28 y.o. female who presents for Follow-up (PAOLO: 08/11 had labs completed 09/01. Patient still experiencing constipation and diarrhea, fatigue. ). ELOISA Yun is seen today in follow-up. Minimal improvement with FODMAP diet having 4-6 bowel movements daily. Typically most in the morning then a few after evening meal. Denies any rectal bleeding. Lab work shows normal pancreatic elastase normal calprotectin no infection. Review of Systems Constitutional: Negative. HENT: Negative. Eyes: Negative. Respiratory: Negative. Cardiovascular: Negative. Gastrointestinal: Positive for diarrhea. Endocrine: Negative. Genitourinary: Negative. Neurological: Negative. Hematological: Negative. Objective Physical Exam Vitals and nursing note reviewed. Constitutional: Appearance: Normal appearance. HENT: Head: Normocephalic. Mouth/Throat: Mouth: Mucous membranes are moist. Pharynx: Oropharynx is clear. Eyes: Conjunctiva/sclera: Conjunctivae normal. Pupils: Pupils are equal, round, and reactive to light. Cardiovascular: Rate and Rhythm: Normal rate and regular rhythm. Pulses: Normal pulses. Heart sounds: Normal heart sounds. Pulmonary: Effort: Pulmonary effort is normal. Breath sounds: Normal breath sounds. Abdominal: General: Abdomen is flat. Bowel sounds are normal. Palpations: Abdomen is soft. Musculoskeletal: Cervical back: Normal range of motion and neck supple. Skin: General: Skin is warm and dry. Neurological: General: No focal deficit present. Mental Status: She is alert and oriented to person, place, and time. Psychiatric: Behavior: Behavior normal. Assessment/Plan Diagnoses and all orders for this visit: Irritable bowel syndrome with both constipation and diarrhea - dicyclomine (Bentyl) 10 mg capsule; Take 1 capsule (10 mg) by mouth 4 times a day as needed (diarrhea). Functional diarrhea recommend dicyclomine 10 mg twice daily continue FODMAP diet May take up to 4 pills daily as needed. Follow-up in 2 months Matt Cox DO 09/23/23 4:30 PM documented in this encounter [facility] Work Phone: 08-12-2023 History of Present illness Narrative Subjective Patient ID: Medhat Go is a 28 y.o. female who presents for Abdominal Pain (Generalized abdominal pain. ), Bloated, Constipation, Diarrhea, Black or Bloody Stool (For a long time ), Nausea, and Anemia (Hx of anemia, pt states that she is constantly feeling fatigued/ run down. ). ELOISA Juarez is a pleasant 28-year-old female began having abdominal pain in her mid teen years. Pain was so severe she had a cholecystectomy with no change in symptoms. Was after that age 16 she finally had GI workup was told she had IBS was placed on medication for spasms did well with the medication but it caused so much fatigue that she can no longer take it. She then became and throughout symptoms more manageable with diet. 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 At that time she went on elimination diet per her project consultant suggestion and felt better avoiding high fructose corn syrup, lactose, preservatives and gluten. She is maintaining a largely gluten-free diet but has not continually following that. She admits that if she gets into gluten she will feel bloated and nauseous but not have diarrhea. Her predominant symptoms are bilateral lower quadrant abdominal pain and a feeling of gas bubble in her right upper quadrant. She had an endoscopy last in 2018 which was unremarkable send multiple imaging including ultrasound CT and lab work with it was all performed prior to her last . She admits she did have take iron replacement during but is not on iron at this time. Family history is positive for probable IBS and her mother there is no history of inflammatory bowel disease or colon cancer in the family Review of Systems Constitutional: Negative. HENT: Negative. Eyes: Negative. Respiratory: Negative. Cardiovascular: Negative. Gastrointestinal: Positive for abdominal pain, constipation, diarrhea and nausea. Endocrine: Negative. Genitourinary: Negative. Neurological: Negative. Hematological: Negative. Objective Physical Exam Vitals and nursing note reviewed. Constitutional: Appearance: Normal appearance. HENT: Head: Normocephalic. Mouth/Throat: Mouth: Mucous membranes are moist. Pharynx: Oropharynx is clear. Eyes: Conjunctiva/sclera: Conjunctivae normal. Pupils: Pupils are equal, round, and reactive to light. Cardiovascular: Rate and Rhythm: Normal rate and regular rhythm. Pulses: Normal pulses. Heart sounds: Normal heart sounds. Pulmonary: Effort: Pulmonary effort is normal. Breath sounds: Normal breath sounds. Abdominal: General: Abdomen is flat. Bowel sounds are normal. Palpations: Abdomen is soft. Musculoskeletal: General: Normal range of motion. Cervical back: Normal range of motion and neck supple. Skin: General: Skin is warm and dry. Neurological: General: No focal deficit present. Mental Status: She is alert and oriented to person, place, and time. Psychiatric: Behavior: Behavior normal. Assessment/Plan Diagnoses and all orders for this visit: NCGS (non-celiac gluten sensitivity) - Celiac Panel; Future - Pancreatic Elastase, Fecal; Future - CBC and Auto Differential; Future - Comprehensive Metabolic Panel; Future - Calprotectin, Fecal; Future Irritable bowel syndrome with both constipation and diarrhea - Celiac Panel; Future - Pancreatic Elastase, Fecal; Future - CBC and Auto Differential; Future - Comprehensive Metabolic Panel; Future - Calprotectin, Fecal; Future Asmita's thyroiditis - Celiac Panel; Future - Pancreatic Elastase, Fecal; Future - CBC and Auto Differential; Future - Comprehensive Metabolic Panel; Future - Calprotectin, Fecal; Future Patient not wish to begin medical therapy at this time she is currently breast-feeding. Will check stool for pancreatic elastase and calprotectin. Arrange lab work for celiac disease general chemistries and follow-up after same. Begin Benefiber wafers 2 daily or 1 tablespoon daily follow-up in 6 to 8 weeks. She is already following a elimination diet. Recommend she begin FODMAP diet which she is largely following at this time Matt Cox DO 08/12/23 3:13 PM documented in this encounter [facility] Work Phone: 10-24-2022 Discharge summary Note Date/Time October 24, 2022 9:50am [facility] Medical Records Department [address] [place] [address] Instructions for Home/Discharge Instructions 10/24/22 0948 MR#: [id number] Acct: [id number] Name: MEDHAT GO JAK Rep #:[id number] : 1995 27 From: Danial Foy MD PCP: Vic Vernon PA-C Status:ADM I N Discharge Instructions Diet Discharge Diet: No restrictions Activity Discharge Activity: Return to Normal Activity, May Drive, May Shower and - (No tub baths for 2 weeks) May resume sexual activity in: 6-8 weeks Lifting Restrictions: No lifting over 25 pounds for 2 to 3 weeks Dressing / Incision Call your doctor if your incision/area has: Continuous Slow Oozing and Foul Smelling Discharge Call your doctor if you observe: Fever of 101 or Higher, Shortness of breath andChest pain Follow Up Care Please Follow Up With: Danial Foy MD When: 2 weeks postoperatively Test Results: Test results from this visit will be discussed in further detail at your follow-up appointment, if applicable. Discharge Plan Admission Admit Date/Time: 10/23/22 05:05 Primary Reason for Your Visit: section Attending Provider: Lidya Foy Primary Care Provider: Vic Vernon Discharge Orders/Prescriptions Prescriptions: New oxycodone 5 mg tablet 5 mg PO Q6H PRN (Reason: pain (scale score 7-10)) 4 Days Qty: 14 0RF Continued ascorbic acid (vitamin C) 1,000 mg tablet 1 g PO Q6H prenat.vits,haresh,riq-ragq-kagvv Tablet 1 tab PO DAILY cholecalciferol (vitamin D3) 50 mcg (2,000 unit) capsule 50 mcg PO DAILY ferrous sulfate [FeroSul] 325 mg (65 mg iron) tablet 325 mg PO DAILY magnesium oxide,aspartate,citr 400 mg magnesium capsule PO prednisone 20 mg tablet 40 mg PO DAILY 4 Days Qty: 8 0RF azelastine 137 mcg (0.1 %) aerosol,spray 2 spray intranasal BID Qty: 30 0RF Rx Instructions: administer into each nostril levothyroxine 175 mcg tablet 175 mcg PO .COMPLEX Qty: 90 3RF Rx Instructions: 175 mcg orally one daily Wed-Wednesday, 1/2 on Wednesday; Discontinued cefdinir 300 mg capsule 300 mg PO BID 7 Days Qty: 14 0RF Referrals / Follow Up: Vic Vernon PA-C [Primary Care Provider] - Disposition Discharge Orders: Discharge Patient (Routine); Ordered 10/24/22 Ordered By: Dr. Danial Foy 10/24/22 0950<Electronically signed by Danial Foy MD>Danial Foy MD CC: CELENA Vernon ~ Signed [facility] Work Phone: [phone]) 898-504407-29-2023 Progress note Author Danial Foy [facility] October 24, 2022 9:50am Note Date/Time October 24, 2022 9:51 am [facility] Medical Records Department [address] [place] [address] Progress Note - OBGYN 10/24/22 0950 MR#: [id number] Acct: [id number] Name: MEDHAT GO Rep #:[id number] : 1995 27 From: Danial Foy MD PCP: Vic Vernon PA-C Status:ADM I N Location: [address] Subjective Subjective No overnight complaints Objective Data Objective Data Vital Signs: Vital Signs Temp Pulse Resp BP Pulse Ox O2 Del Method 98.5 F 73 16 97/56 L 99 Room Air 10/24/22 07:33 10/24/22 07:33 10/24/22 07:33 10/24/22 07:33 10/24/22 07:33 10/24/22 07:33 Oxygen Delivery Method Room Air Weight: 144 lb 13.499 oz Body Mass Index (BMI) 29.2 Intake & Output: Intake and Output for Last 24 Hours 10/22/22 10/23/22 10/24/22 23:59 23:59 23:59 Intake Total 3660 / 3660 Output Total 2325 / 2325 600 / 600 Balance 1335 / 1335 -600 / -600 Lab / Micro Data 10/24/22 05:15 Labs: Laboratory Results - last 24 hr 10/24/22 05:15: WBC 15.9 H, RBC 2.93 L, Hgb 8.7 L, Hct 26.7 L, MCV 91.1, MCH 29.7, MCHC 32.6, RDW Std Deviation 46.0 H, RDW Coeff of Raudel 13.9, Plt Count 177,MPV 9.5 Physical Exam Const alert, oriented x3, no apparent distress, average body habitus, healthy appearing and well nourished HEENT normocephalic and moist oral mucous membranes Eyes PERRL Neck full ROM Resp normal respiratory effort, no retractions and no use of accessory muscles GI GI Narrative: Soft, nontender, bandage clean dry and intact Extremity normal to inspection and full ROM Neuro moves all extremities and no focal motor deficits Psych mental status grossly normal, affect normal, speech normal and activity/motor behavior normal Assessment & Plan (1) delivery delivered: PLAN: Postoperative day 1 status post primary section for breech. Breast-feeding. Pain well controlled. 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 10/24/22 0950 <Electronically signed by Danial Foy MD> Cosigner Signature (if applicable): CC: ~ Signed [facility] Work Phone: 1(143) 523-470807-28-2023 History and physical note Author Lidya Foy [facility] October 23, 2022 7:42am Note Date/Time October 23, 2022 7:42 am [facility] Medical Records Department [address] [place] [address] H&P Exam - [employer] 10/23/22 0737 MR#: [id number] Acct: [id number] Name: MEDHAT GO Rep #:[id number] : 1995 27 From: Lidya cleaning DO PCP: Vic Vernon PA-C Status:ADM I N [facility] and Physical Date of Admission: 10/23/22 HPI: 27 yo at 39/0w, RAFFY 10/30/22 by LMP, admitted for primary section for breech position. Denies regular contractions, leaking of fluid, vaginal bleeding. Reports movement. Denies headache or vision changes, chest pain or shortness of breath, nausea or vomiting, diarrhea constipation, fevers or chills. complicated by: Asmita's well controlled on medication, iron deficiency anemia, dizziness during (had cardiology follow-up with normal EKG). [employer] history: G1: 39-week G2: Current Medical history: 1. Asmita's hypothyroidism 2. Iron deficiency anemia Surgical history: 1. Cholecystectomy 2013 2. Tympanostomy tubes 3. Tonsillectomy 2017 Medications: 1. Vitamin C 2. Vitamin D3 3. Iron 4. Levothyroxine 5. Magnesium 6. vitamin Allergies: No known drug allergies Family history: Denies history of blood clots or bleeding disorders Social history: Denies tobacco, alcohol, drug use Physical exam: Vitals blood pressure 102/53, heart rate 88, respiratory rate 16, temp 97.7 ?F, oxygen saturation 97% on room air General: No acute distress HEENT: Normocephalic/atraumatic, PERRLA cardiorespiratory: No increased effort Abdomen: Soft, nontender, gravid Extremities: No edema Bedside ultrasound: Confirms cephalic position this morning Assessment/plan: 27 yo at 39/0w, RAFFY 10/30/22 by LMP, admitted for primary section for breech position. complicated by: Asmita's wellcontrolled on medication, iron deficiency anemia, dizziness during (had cardiology follow-up with normal EKG). ?Primary section. 2 g Ancef preoperatively ? All risk, benefits, alternatives discussed with patient. Risk include but arenot limited to: Risk of bleeding to the point of transfusion, infection, injury to surrounding tissue including bowel/bladder potentially requiring prolonged Gutierrez catheter use, VTE, ICU admission. Patient aware and consented. ?Hypothyroidism. Continue levothyroxine. Will need repeat labs approximately 6weeks ? Iron deficiency anemia. Repeat CBC tomorrow. ? Dizziness in . Negative cardiac work-up. Likely related to . 10/23/22 0742 <Electronically signed by Lidya Foy DO> Cosigner Signature (if applicable): CC: CELENA Vernon; Dr. Lidya Foy, DO~ Signed [facility] Work Phone: 1(247) 126-416507-28-2023 Procedure [facility] 03-26-2022 NotePap Smear Specimen AdequacyDecemb2021 10:06amComment. Satisfactory for evaluation. No endocervical component is identified.[employer] INTERFACED A#[id number] County Health Center Work Phone: Comment on above:Satisfactory for evaluation. No endocervical component is identified.03-26-2022 NotePap Smear Specimen Adequacy March 26, 2022 11:06amComment.Satisfactory for evaluation. No endocervical component is identified.[facility] INTERFACED A#[id number] County Health Center Comment on above:Satisfactory for evaluation. No endocervical component is identified.03-26-2022 NotePap Smear Specimen AdequacyDecemb 2021 11:06am Comment.Satisfactory for evaluation. No endocervical component is identified. [employer] INTERFACED A#[id number] Medical Specialty Hospital [facility] NorthComment on above: Satisfactory for evaluation. No endocervical component is identified.Evaluation note* Diagnosis Onset Date Resolution Status Hypothyroidism affecting in first trimester acute Iron deficiency acute [facility] Work Phone: Evaluation noteNo assessment information available [facility] Work Phone: Evaluation note* Diagnosis Onset Date Resolution Status Palpitations acute delivery delivered acute [facility] Work Phone: Evaluation note* Diagnosis NCGS (non-celiac gluten sensitivity)- Primary Irritable bowel syndrome with both constipation and diarrhea Asmita's thyroiditis Chronic lymphocytic thyroiditis documented in this encounter [facility] Work Phone: Evaluation note* Diagnosis Irritable bowel syndrome with both constipation and diarrhea- Primary documented in this encounter [facility] Work Phone: Evaluation note* Diagnosis Breast pain, right- Primary Mastodynia [facility] Additional Instructions Your exam indicates you have an upper respiratory infection which will last on average 3 weeks. However you also have a secondary right ear infection. Take the medications as directed to help reduce your symptoms and resolve the ear infection and return to the ER should you have any further concernsWSelect Medical Specialty Hospital [facility] North Work Phone: Summary Purpose Family History No Family History Records Found Relationship Condition Age at Onset Recorded Date/T noman mother No pertinent past medical history Unknown father No pertinent past medical history Unknown Advance Directives No Advanced Directives Records Found Advance Directive Response Recorded Date/ Time Living Will No January 31 4:19pm Power of Diesel Locomotive Engineer No January 31, 2015 4:19pm Advance Directive Response Recorded Date/ Time Living Will No June 09, 2022 6:08am Power of Diesel Locomotive Engineer No June 09 6:08am Advance Directive Response Recorded Date/ Time Living Will No October 23, 2022 5:25am Power of Diesel Locomotive Engineer No October 23 5:25am Chief Complaint and Reason for Visit Chief Complaint 2 y fu E ORDERS Reason for Visit Hypothyroidism affec ting in first trimester Iron deficiency Chief Complaint 2 y fu E ORDERS GENERAL Reason for Visit Hypothyroidism affec ting in first trimester Iron deficiency Chief Complaint GENERAL Chief Complaint GENERAL 31 WEEKS PREGO Chief Complaint 31 WEEKS PREGO Chief Complaint 31 WEEKS PREGO PALP (DANII) PRIMARY Reason for Visit Palpitations delivery delivered Chief Complaint 31 WEEKS PREGO PALPS PALP (FOY) PRIMARY Reason for Visit Palpitations delivery delivered Additional Source Comments INFORMATION SOURCE (unrecogn ized section and content) DATE CREATED AUTHOR 12/08/2019 [facility] DATE CREATED AUTHOR AUTHOR'S ORGANIZ ATION [facility] DATE CREATED AUTHOR AUTHOR'S ORGANIZ ATION 05/14/2024 [facility] DATE CREATED AUTHOR AUTHOR'S ORGANIZ ATION 06/04/2024 [facility] Goals (unrecognized section and content) Goals may be documented in a n alternate sectionGoals may be documented in an alternate sectionGoals may be documented in an alternate sectionGoals may be documented in an alternate sectionGoals may be documented in an alternate sectionGoals may be documented in an alternate sectionGoals may be documented in an alternate sectionGoals may be documented in an alternate section Care Teams (unrecognized sec tion and content) Team Status: Active Member Role Status Dates Dr. Eduard Alvarez MD Family Provider Active [facility] PA, PA-C Primary Care Provider Active Team Status: Inactive Member Role Status Dates [facility] PA, PA-C Primary Care Provider, Referri ng Provider Active Dr. Jesus Erickson MD Attending Provider Active Team Status: Inactive Member Role Status Dates [facility] PA, PA-C Primary Care Provider Active Dr. Jesus Erickson MD Attending Provider, Referring Provi frank Active Team Status: Inactive Member Role Status Dates [facility] PA, PA-C Primary Care Provider Active Dr. Lidya Foy DO Attending Provider Active Team Status: Inactive Member Role Status Dates [facility] PA, PA-C Primary Care Provider Active Dr. Magdiel Sky DO Emergency Provider Active Team Status: Inactive Member Role Status Dates [facility] PA, PA-C Primary Care Provider Active Dr. Magdiel Sky DO Attending Provider, Emergency Pr ovider Active Team Status: Active Member Role Status Dates [facility] PA, PA-C Primary Care Provider Active Dr. Lidya Foy DO Attending Provider, Referrin g Provider Active Team Status: Inactive Member Role Status Dates [facility] PA, PA-C Primary Care Provider Active Dr. Lidya Foy , Attending Provider, Referrin g Provider Active Team Status: Inactive Member Role Status Dates [facility] Primary Care Provider Active Miya Nicholas NP-C Attending Provider Active Team Status: Inactive Member Role Status Dates [facility] KERLINE, PA-C Primary Care Provider, Referri ng Provider Active Dr. Wali Gaspar MD Attending Provider Active Team Status: Inactive Member Role Status Dates [facility] KERLINE, PA-C Primary Care Provider Active Dr. Lidya Foy DO Admit Provider , Attending Provider, Referring Provider Active Team Status: Active Member Role Status Dates [facility] KERLINE, PA-C Primary Care Provider Active Dr. Wali Gaspar MD Attending Provider Active Dr. 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 Bloated Constipation Diarrhea Black or Bloody Stool For a long time Nausea Anemia Hx of anemia, pt sta john that she is constantly feeling fatigued/ run down. Reason Comments Follow-up PAOLO: 08/11 had labs completed 09/01. Patient still experiencing constipation and diarrhea, fatigue. Reason Comments breast pain, R Source Comments (unrecognize d section and content) In the event this informatio n is protected by the Federal Confidentiality of Alcohol and Drug Abuse Patient Records regulations: The Federal rules restrict any use of the information to criminally investigate or prosecute any alcohol or drug abuse patient.[facility] FOR RECORDS PERTAINING TO PATIENTS WHO ARE OR HAVE BEEN ENROLLED IN A CHEMICAL DEPENDENCY/SUBSTANCEABUSE PROGRAM, SOME INFORMATION MAY BE OMITTED. This clinical summary was aggregated from multiple sources. Caution should be exercised in using it in the provision of clinical care. This summary normalizes information from multiple sources, and as a consequence, information in this document may materially change the coding, format and clinical context of patient data. In addition, data may be omitted in some cases. CLINICAL DECISIONS SHOULD BE BASED ON THE PRIMARY CLINICAL RECORDS. [facility]. provides no warranty or guarantee of the accuracy or completeness of information in this document.
== END | disposition home or self-care (01) ==
LOC: LAB 09:14
PROVIDERS: PCP Family Medicine; Referring Provider Nurse Practitioner Family; Visit Provider Nurse Practitioner Family
DX: E03.8 Other specified hypothyroidism (principal); E06.3 Autoimmune thyroiditis
CPT/HCPCS: 36415; 84439; 84443